=== PATIENT | female | born 2000 | race Caucasian/White ===

== ENCOUNTER 2019-06-11 20:20 | Emergency (ER) | payer OTHER, BC ==
[~2019-06-11] VITALS: Ht 160 cm; Wt 61.2 kg
[2019-06-11 20:38] LABS: BILIRUBIN,URINE NEGATIVE (NEGATIVE); CLARITY,URINE CLEAR; COLOR,URINE YELLOW; GLUCOSE, URINE (UA) NEGATIVE (NEGATIVE); KETONES,URINE NEGATIVE (NEGATIVE); LEUKOCYTE ESTERASE ,URINE 2+ (NEGATIVE); NITRITE,URINE NEGATIVE (NEGATIVE); PROTEIN,URINE NEGATIVE (NEGATIVE)
--- NOTE | 2019-06-11 20:45 | NUR ---
Assisted provider with bedside ultrasound. Baby A FHT 135 Baby B FHT 150 + movement to both babies.
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
[2019-06-11 21:13] LABS: BACTERIA,URINE FEW /HPF
[2019-06-11 21:27] VITALS: BP 120/77
== END 2019-06-11 21:28 | disposition home or self-care (01) ==
LOC: ER 20:23
DX: O26.892 Other specified pregnancy related conditions, second trimester (principal); R10.9 Unspecified abdominal pain; R40.2142 Coma scale, eyes open, spontaneous, at arrival to emergency department; R40.2252 Coma scale, best verbal response, oriented, at arrival to emergency department; R40.2362 Coma scale, best motor response, obeys commands, at arrival to emergency department; Z3A.16 16 weeks gestation of pregnancy; V49.50XA Passenger injured in collision with unspecified motor vehicles in traffic accident, initial encounter
CPT/HCPCS: 81000; 87088

== ENCOUNTER 2019-10-28 05:34 | Outpatient (CLI) | payer BC, OTHER ==
[~2019-10-28] VITALS: Ht 157 cm; Wt 86.0 kg
[2019-10-28] MEDS ORDERED: FERR-84 PO (09:58)
[2019-10-28] MEDS ORDERED: FOLI0.8C PO (09:58)
[2019-10-28] MEDS ORDERED: PREN-8 PO (09:58)
[2019-10-28] MEDS ORDERED: CETI10TA21 PO (09:58)
== END 2019-10-28 10:18 | disposition home or self-care (01) ==
LOC: PREOP 05:34
PROVIDERS: ATTEND Obstetrics & Gynecology
DX: Z01.818 Encounter for other preprocedural examination (principal)

== ENCOUNTER 2019-11-04 06:36 | Inpatient (IN) | payer BC, OTHER ==
[2019-11-04] VITALS (11 sets, daily range): BP systolic 106–137; BP diastolic 76–97
[~2019-11-04] VITALS: Ht 157.5 cm; Wt 87.6 kg
[~2019-11-04 06:36] MED LIST: AMPICILLIN FOR IV USE 1,000 MG/VIAL ONE; CETI10TA21 PO; CITRIC ACID/SOB CIT (BICITRA) 30 ML UDC ONE; FAMOTIDINE 20MG/2ML IV (PEPCID) ONE; FERR-84 PO; FOLI0.8C PO; LACTATED RINGERS 1,000 ML IV ONE; METOCLOPRAMIDE INJ 10 MG/2 ML (REGLAN) ONE; PREN-8 PO; WATER (STERILE) FOR INJECTION 10 ML ONE
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
--- NOTE | 2019-11-04 06:48 | NUR ---
MUKESH ELY presented to unit via ambulatory from ED, accompanied by s/o, with c/o TWIN . MUKESH ELY weighed, gowned, voided, and to bed. EFHM and TOCO applied, VS taken. MUKESH ELY oriented to bed controls, call light, TV, heat, and A/C controls.
[2019-11-04] MEDS ORDERED: LACTATED RINGERS 1,000 ML IV PRN (06:52)
[2019-11-04] MEDS ORDERED: BUPIVACAINE 0.25% 30 ML (SENSORCAINE) VIAL ONE (06:57)
[2019-11-04] MEDS ORDERED: fentaNYL INJECTION 100 MCG/2 ML AMP ONE (06:57)
[2019-11-04] MEDS ORDERED: METOCLOPRAMIDE INJ 10 MG/2 ML (REGLAN) IV ONE (07:00)
[2019-11-04] MEDS ORDERED: ceFAZolin INJECTION 1,000 MG in WATER (STERILE) FOR INJECTION 10 ML IV ONE (07:00)
[2019-11-04] MEDS ORDERED: FAMOTIDINE 20MG/2ML IV (PEPCID) IV ONE (07:00)
[2019-11-04] MEDS ORDERED: CITRIC ACID/SOB CIT (BICITRA) 30 ML UDC PO ONE (07:00)
[2019-11-04] MEDS ORDERED: CATHETER FLUSH 10 ML SYR IV PRN (07:00)
[2019-11-04] MEDS: LACTATED RINGERS 1,000 ML IV PRN ×2 (07:10→07:51)
[2019-11-04] MEDS ORDERED: AMPICILLIN FOR IV USE 2,000 MG VIAL ONE (07:12)
[2019-11-04] MEDS ORDERED: ceFAZolin INJECTION 0 MG ONE (07:12)
[2019-11-04] MEDS ORDERED: WATER (STERILE) FOR INJECTION 10 ML ONE (07:14)
[2019-11-04 07:17] LABS: EOSINOPHILS % (AUTO) 1 % (0-10); HEMATOCRIT 42 % (35-52); HEMOGLOBIN 14.3 G/DL (11.5-16.0); LYMPHOCYTES % (AUTO) 21 % (12-44); MEAN CORPUSCULAR HEMOGLOBIN 29 PG (25-34); MEAN CORPUSCULAR HGB CONC 34 G/DL (32-36); MEAN CORPUSCULAR VOLUME 86 FL (80-99); MEAN PLATELET VOLUME 10.4 FL (7.4-10.4); MONOCYTES % (AUTO) 8 % (0-12); NEUTROPHILS % (AUTO) 70 % (42-75); PLATELET COUNT 307 10^3/uL (130-400); RED CELL DISTRIBUTION WIDTH 13.6 % (10.0-14.5); WHITE BLOOD COUNT 12.8 10^3/uL (4.3-11.0)
[2019-11-04 07:18] LABS: BASOPHILS % (AUTO) 0 % (0-10); EOSINOPHILS # (AUTO) 0.1 10^3/uL (0.0-0.3); LYMPHOCYTES # (AUTO) 2.7 X 10^3 (1.0-4.0); NEUTROPHILS # (AUTO) 8.9 X 10^3 (1.8-7.8)
--- NOTE | 2019-11-04 07:19 | History & Physical-OB ---
OB - Chief Complaint & HPI Date/Time Date of Admission: Date of Admission: Nov 04, 2019 at 06:36 Date seen by a Provider: Nov 06, 2019 Time Seen by a Provider: 07:00 Chief Complaint/History OB-Reason for Admission/Chief: Section Hx : 1 Hx Para: 0 Expected Date of Delivery: November 23, 2019 Gestational Age in Weeks: 37 Gestational Age in Days: 2 Indication for : malpresentation Admission Nurse Assessment Rev: Yes Allergies and Home Medications Allergies Coded Allergies: No Known Drug Allergies (Unverified , 10/28/19) Home Medications Cetirizine HCl 10 Mg Tablet, 10 MG PO DAILY PRN for CONGESTION, (Reported) Ferrous Sulfate 325 Mg Tablet, 325 MG PO DAILY, (Reported) Folic Acid 0.8 Mg Capsule, 0.8 MG PO DAILY, (Reported) Vit W-Ca,Fe,FA(<1 mg) 1 Each Tablet, 1 EACH PO DAILY, (Reported) Patient Home Medication List Home Medication List Reviewed: Yes OB - History Hx of Present Care: Yes Ultrasounds: Abnormal US findings (Twin ) Obstetrical Complications: None Medical Complications: None Delivery History Adverse Rxn to Tranfusion: No (N/A) Patient Past Medical History n/a Social History/Family History HIV/AIDS: No Sexually Transmitted Disease: No 2nd Hand Smoke Exposure: No OB - Admission Exam Physical Exam HEENT: NCAT Heart: Rhythm Normal Lungs: Clear Abdomen: Gravid Extremities: Normal Reflexes: Normal Heart Rate: 130's Accelerations: Accelerations Present Decelerations: No Decelerations Short Term Variability: Present Chcf Variability: Average (6-25) Contractions on Admission: 6-10 Minutes Apart Labs Laboratory Tests Test 11/04/19 07:00 Range/Units OB - Assessment/Plan/Diagnosis Assessment Assessment: section Admission Dx 19 yo @ 37.2 weeks MonoDi Twins with question of chorionicity Malpresentation Breech/Vtx Admission Status: Inpatient Order (span 2 midnights) Reason for Inpatient Admission: Primary Plan Plan: Section ANGELA RIVERA DO Nov 04, 2019 07:19
--- NOTE | 2019-11-04 07:27 | Discharge Inst-Women's Service ---
Discharge Inst-Women's Serv Depart Medication/Instructions New, Converted or Re-Newed RX: RX on Chart Final Diagnosis POD 2 PLTCS Problems Reviewed?: Yes Consults/Follow Up Additional Follow Up: Yes Orders/Referrals Dr. Marinelli in 7-10 days and in 6 weeks Activity Activity: Activity as Tolerated Driving Instructions: No Driving for 1 Week NO SMOKING: NO SMOKING Nothing Inside Vagina: No Douching, No [place], No Tampons Diet Discharge Diet: No Restrictions Symptoms to Report to : Bleeding Excessive, Pain Increased, Fever Over 101 Degrees F, Vaginal Bleeding Increase, Questions/Concerns For Any Problems or Questions: Contact Your Physician Skin/Wound Care Infection Signs and Symptoms: Increased Redness, Foul Odor of Wound, Increased Drainage, Skin Itchy or Has a Rash, Increased Swelling, Temperature Above 101 F Operative Area Clean and Dry: Keep Incision Clean/Dry Stitches/[place]/Dermabond: Dermabond, Care of Stitches Bathing Instructions: ANGELA Ren DO Nov 04, 2019 07:27
[2019-11-04] MEDS ORDERED: ceFAZolin 2 GM IV Premixed 50 ML ONE (07:29)
[2019-11-04] MEDS ORDERED: MEASLES,MUMPS,RUBELLA 1 EA INJ SC SCH (07:30)
[2019-11-04] MEDS ORDERED: DCS100C PO (07:30)
[2019-11-04] MEDS ORDERED: ONDANSETRON 4 MG/2 ML (SDV) Z0FRAN IVP PRN (07:30)
[2019-11-04] MEDS ORDERED: HYDR-83 PO (07:30)
[2019-11-04] MEDS ORDERED: TETANUS,DIPTH,PERTUSS P/F (BOOSTRIX) 0.5 ML VIAL IM SCH (07:30)
[2019-11-04] MEDS ORDERED: IBUP-844 PO (07:30)
[2019-11-04] MEDS: OXYTOCIN PRE-MIX DRIP 500 ML IV SCH ×3 (08:05→09:15)
[2019-11-04] MEDS ORDERED: METHYLERGONOVINE 0.2 MG/ML (METHERGINE) AMP ONE (08:06)
[2019-11-04] MEDS ORDERED: OXYTOCIN PRE-MIX DRIP 1,000 ML IV ONE (08:34)
--- NOTE | 2019-11-04 09:13 | OPERATIVE REPORT ---
DATE OF SERVICE: PREOPERATIVE DIAGNOSES: 1. A 19-year-old G1, P0 at 37 weeks and 2 days gestation. 2. Twin . 3. Malpresentation. POSTOPERATIVE DIAGNOSES: 1. A 19-year-old G1, P0 at 37 weeks and 2 days gestation. 2. Twin . 3. Malpresentation. PROCEDURE: Primary low transverse section. SURGEON: Ceferino Marinelli DO ALCOHOLIC COUNSELOR: Aurora Russo DNP, who was necessary for retraction and manipulation throughout the procedure. ANESTHESIA: Spinal. ESTIMATED BLOOD LOSS: 600 mL. URINE OUTPUT: 75 mL clear at the end of the procedure. FLUIDS: 2100 mL lactated Ringer's solution. FINDINGS: Two live male infants. A, weight 5 pound 7 ounces, Apgars of 8 and 8. B, weight 5 pounds 7 ounces, Apgars of 9 and 9. Grossly normal appearing uterus, bilateral fallopian tubes and ovaries. SPECIMEN SENT: Placenta. INDICATIONS FOR PROCEDURE: This 19-year-old female is a patient who had sought care in my office. Her was complicated by twin . There was a question of chorionicity throughout the . Early ultrasound was level I, ultrasound that appeared to be di-di chorionicity however follow up higher risk had questionable mono-di features. Therefore, the was monitored as a mono-di . She had maternal medicine monitoring throughout the ; however, they recommended delivery at 37 weeks. I discussed with the patient delivery due to malpresentation, the leading twin was breech. Risks of procedure were discussed with the patient in detail including risk of bleeding, infection, damage to surrounding structures including, but not limited to bowel, bladder, ureter, kidneys, possible need for reoperation, postoperative complications as well as recovery timeframe, possible need for blood transfusion, risk from anesthesia and even . After everything was discussed with the patient in detail, consent was obtained in the preoperative area and the patient was taken to the operating room. OPERATIVE REPORT IN DETAIL: Once in the operating room, spinal anesthesia was found to be adequate. She was placed in supine position with leftward tilt, prepped and draped in normal sterile fashion. A timeout was performed and anesthesia was tested. A Pfannenstiel skin incision was then made with a knife and carried down to underlying fascia using Bovie cautery. Fascial incision extended laterally using Bovie cautery. The superior aspect of fascial incision was then grasped with Erica clamps, tented up and dissected off the underlying rectus muscles. The inferior aspect of the fascial incision was then grasped with Erica clamps, tented up and dissected off the underlying rectus muscles. Rectus muscle was dissected down the midline using Arcos scissors, which exposed the peritoneum, which I entered bluntly and extended using blunt traction. Carl ring retractor was placed within the peritoneal incision, which offers excellent lateral sidewall retraction. I identified the lower uterine segment, which was found to be thinned out and make a low transverse incision to the vesicouterine peritoneum and bluntly dissected off a bladder flap. I then proceeded with my myotomy until membranes were visualized at which point I extended the uterine incision laterally and superiorly using bandage scissors. Amniotomy is performed in the process of doing so. The leading infant is in the breech presentation. The buttocks were elevated up to the incision. With gentle fundal pressure, the buttocks were delivered through the incision and the was delivered up to the upper torso where the arms were delivered by sweeping them across the chest and gentle extension and flexion of the head allowed delivery of the head through the incision. The nares and oropharynx were bulb suctioned. The cord doubly clamped and cut and infant was handed off to the waiting nurses in attendance. A second amniotomy was performed in second sac and this was now noted to be in the breech presentation as well. In similar fashion, the buttocks were delivered and the infant was delivered up to the level of the upper torso where the arms were delivered by sweeping them across the chest and then with gentle extension and flexion of the neck, the infant's head was delivered through the incision where the nares and oropharynx were then bulb suctioned. Infant is then cord has been clamped and cut and was handed off to waiting nurses in attendance. Cord blood was collected from this cord as well. Placenta was then delivered and sent for pathology evaluation. The uterus was exteriorized and cleared off endometrial clots and debris. I then proceeded with closing the uterine incision using 0 Vicryl suture in running locked fashion. Second layer of imbricating 0 Monocryl was placed. Excellent hemostasis was noted after doing so, however, there is some slight uterine bogginess likely due to uterine distention from twin . I have 0.2mg of Methergine administered IM at that point. The uterus was then placed back within the pelvis and the pelvis was copiously irrigated using normal saline. Once again, there was no active bleeding noted from any of my dissection planes. I placed Interceed antiadhesive over my low transverse incision and then removed the Carl ring retractor. After doing so, I reapproximated the peritoneum using 3-0 Vicryl suture in running fashion. The rectus muscle reapproximated using 3-0 Vicryl suture in interrupted fashion. The fascia was reapproximated using 0 Vicryl suture in running fashion. Subcutaneous tissue was reapproximated using 3-0 plain interrupted subcutaneous stitch and skin reapproximated using 4-0 Monocryl running subcuticular. Dermabond was applied to incision and sterile dressing with adhesive white tape. The patient tolerated the procedure well and sent to recovery area in stable condition. Lap and sponge counts were correct at the end of the procedure. Instrument counts correct as well. Nance catheter was left in place. Two grams of Ancef given preoperatively for infection prophylaxis. Job ID: [id number] DocumentID: [id number] Dictated Date: 11/04/2019 08:44:30 Keel Press Operator Date: 11/04/2019 09:12:46 Dictated By: DO MAMADOU HERNANDEZ
[2019-11-04] MEDS: KETOROLAC 30 MG/ML VIAL IV SCH ×3 (09:25→23:41)
[2019-11-04] MEDS: HYDROcodone/APAP 5 MG/325 MG (LORTAB) TAB PO PRN ×2 (11:48→19:04)
--- NOTE | 2019-11-04 12:30 | NUR ---
Nance DC'd. Fundus firm U/2 with moderate rubra lochia noted. Pericare completed and clean pad and panties applied.
[2019-11-04] MEDS ORDERED: HYDROmorphone 2 MG/ML VIAL (DILAUDID) IV PRN (12:45)
[2019-11-04] MEDS ORDERED: HYDROmorphone 2 MG/ML VIAL (DILAUDID) ONE (12:47)
[2019-11-04] MEDS: CATHETER FLUSH 10 ML SYR IV SCH ×2 (14:00→23:41)
[2019-11-04] MEDS ORDERED: CATHETER FLUSH 10 ML SYR IV SCH (14:00)
--- NOTE | 2019-11-04 15:50 | NUR ---
Patient assisted up to restroom. +void noted. Pericare completed and clean pad applied. Patient ambulated back to bed without difficulty.
[2019-11-04] MEDS: DOCUSATE SODIUM 100 MG (COLACE) CAP PO SCH ×2 (17:56→20:26)
--- NOTE | 2019-11-04 19:04 | NUR ---
Lortab 2 PO given for patient's c/o pain.
--- NOTE | 2019-11-04 19:15 | NUR ---
Report to Yayo Tracy RN.
[2019-11-05 03:15] VITALS: BP 106/71
[2019-11-05] MEDS: HYDROcodone/APAP 5 MG/325 MG (LORTAB) TAB PO PRN ×3 (03:15→17:34)
[2019-11-05 05:29] LABS: BASOPHILS % (AUTO) 0 % (0-10); EOSINOPHILS # (AUTO) 0.1 10^3/uL (0.0-0.3); EOSINOPHILS % (AUTO) 1 % (0-10); HEMATOCRIT 29 % (35-52); HEMOGLOBIN 9.6 G/DL (11.5-16.0); LYMPHOCYTES # (AUTO) 2.6 X 10^3 (1.0-4.0); LYMPHOCYTES % (AUTO) 20 % (12-44); MEAN CORPUSCULAR HEMOGLOBIN 29 PG (25-34); MEAN CORPUSCULAR HGB CONC 33 G/DL (32-36); MEAN CORPUSCULAR VOLUME 89 FL (80-99); MEAN PLATELET VOLUME 10.3 FL (7.4-10.4); MONOCYTES # (AUTO) 1.1 X 10^3 (0.0-1.0); MONOCYTES % (AUTO) 9 % (0-12); NEUTROPHILS # (AUTO) 9.1 X 10^3 (1.8-7.8); NEUTROPHILS % (AUTO) 70 % (42-75); PLATELET COUNT 265 10^3/uL (130-400); RED CELL DISTRIBUTION WIDTH 13.6 % (10.0-14.5)
[2019-11-05] MEDS: KETOROLAC 30 MG/ML VIAL IV SCH (06:26)
[2019-11-05] MEDS: CATHETER FLUSH 10 ML SYR IV SCH ×2 (06:26→17:34)
[2019-11-05 09:02] VITALS: BP 118/62
[2019-11-05] MEDS: DOCUSATE SODIUM 100 MG (COLACE) CAP PO SCH ×2 (09:02→21:58)
--- NOTE | 2019-11-05 09:19 | Postpartum Progress Note ---
Note Note Day # 1 Subjective: Patient is without complaints. Ambulating, voiding. Tolerating a regular diet without nausea or vomiting. Normal lochia. Pain is well controlled with oral pain medications. Objective: Physical Exam: General - Alert and oriented, no apparent distress Abdomen - Soft, appropriately tender to palpation, non-distended, fundus firm at umbilicus Extremities - no edema, negative Wesley's bilaterally Incision- c/d/i Assessment: POD 1 PLTCS Acute blood loss anemia Plan: Routine care. Encourage breast feeding. Encourage ambulation. Ferrous sulfate supplementation. Plan for discharge tomorrow Vitals - Labs Vital Signs - I&O Vital Signs Date Time Temp Pulse Resp B/P (MAP) Pulse Ox O2 Delivery O2 Flow Rate FiO2 11/05/19 09:02 36.4 98 18 118/62 (80) 97 Room Air 11/05/19 03:15 36.6 93 18 106/71 (83) 99 Room Air 11/04/19 23:41 36.4 76 18 122/76 (91) 99 Room Air 11/04/19 20:26 36.8 103 16 129/81 (97) 99 Room Air 11/04/19 16:11 36.6 99 16 137/81 (99) 98 Room Air 11/04/19 11:48 36.8 95 18 126/79 (95) 99 Room Air 11/04/19 09:45 Room Air 11/04/19 09:45 36.6 16 122/87 (99) Room Air 11/04/19 09:30 36.6 16 127/79 (95) Room Air 11/04/19 09:30 Room Air I & O 11/05/19 07:00 Intake Total 5864.8 ml Output Total 3675 ml Balance 2189.8 ml Labs Laboratory Tests 11/05/19 05:18: White Blood Count 13.0H, Red Blood Count 3.30L, Hemoglobin 9.6#L, Hematocrit 29L , Mean Corpuscular Volume 89, Mean Corpuscular Hemoglobin 29, Mean Corpuscular Hemoglobin Concent 33, Red Cell Distribution Width 13.6, Platelet Count 265, Mean Platelet Volume 10.3, Neutrophils (%) (Auto) 70, Lymphocytes (%) (Auto) 20, Monocytes (%) (Auto) 9, Eosinophils (%) (Auto) 1, Basophils (%) (Auto) 0, Neutrophils # (Auto) 9.1H, Lymphocytes # (Auto) 2.6, Monocytes # (Auto) 1.1H, Eosinophils # (Auto) 0.1, Basophils # (Auto) 0.0 ANGELA RIVERA DO Nov 05, 2019 9:19 am
--- NOTE | 2019-11-05 10:30 | Anesthesia-Regional Post-Op ---
Regional Patient Condition Mental Status: Alert, Oriented x3 Circulation: Same as Pre-Op Headache: Absent Sensation: Full Recovery Motor Block: Absent Post Op Complications Complications None Follow Up Care/Instructions Patient Instructions None needed. Anesthesia/Patient Condition Patient is doing well, no complaints, stable vital signs, no apparent adverse anesthesia problems. No complications reported per nursing. AIMEE KRAUSE CRNA Nov 05, 2019 10:30
--- NOTE | 2019-11-05 10:58 | NUR ---
Dr Marinelli called to notfiy of pt c/o shortness of breath when up moving in the room." New order received. plan of care reviewed with pt.
[2019-11-05] MEDS: FERROUS SULF 325 MG (IRON) TAB PO SCH (11:08)
[2019-11-05] MEDS: IBUPROFEN 600 MG (MOTRIN) TAB PO SCH ×2 (11:41→17:20)
[2019-11-05 13:12] VITALS: BP 116/67
[2019-11-05 17:22] VITALS: BP 123/63
[2019-11-06 01:13] VITALS: BP 120/66
[2019-11-06] MEDS: IBUPROFEN 600 MG (MOTRIN) TAB PO SCH ×3 (01:13→12:41)
[2019-11-06] MEDS: HYDROcodone/APAP 5 MG/325 MG (LORTAB) TAB PO PRN (01:13)
[2019-11-06 06:31] VITALS: BP 116/67
[2019-11-06] MEDS: DOCUSATE SODIUM 100 MG (COLACE) CAP PO SCH (08:09)
[2019-11-06] MEDS: FERROUS SULF 325 MG (IRON) TAB PO SCH (08:09)
--- NOTE | 2019-11-06 09:25 | Postpartum Progress Note ---
Note Note Day # 2 Subjective: Patient is without complaints. Ambulating, voiding. Tolerating a regular diet without nausea or vomiting. Normal lochia. Pain is well controlled with oral pain medications. Objective: Physical Exam: General - Alert and oriented, no apparent distress Abdomen - Soft, appropriately tender to palpation, non-distended, fundus firm at umbilicus Extremities - no edema, negative Wesley's bilaterally Incision- c/d/i Assessment: [POD 2 PLTCS Plan: Routine care. Encourage breast feeding. Encourage ambulation. Ferrous sulfate supplementation. Plan for discharge today Vitals - Labs Vital Signs - I&O Vital Signs Date Time Temp Pulse Resp B/P (MAP) Pulse Ox O2 Delivery O2 Flow Rate FiO2 11/06/19 06:31 36.4 86 18 116/67 (83) 98 Room Air 11/06/19 01:13 36.6 104 18 120/66 (84) 98 Room Air 11/05/19 17:22 36.8 97 18 123/63 (83) 98 Room Air 11/05/19 13:12 36.9 100 18 116/67 (83) 97 Room Air I & O 11/06/19 07:00 Intake Total 1800 ml Output Total 2700 ml Balance -900 ml ANGELA RIVERA DO Nov 06, 2019 9:25 am
[2019-11-06 12:00] VITALS: BP 116/68
--- NOTE | 2019-11-06 14:50 | NUR ---
Report received from [facility]. care assumed of pt.
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
== END 2019-11-06 17:55 | disposition home or self-care (01) | DRG 787 ==
LOC: LDRP 06:36 → WS 10:00
PROVIDERS: ADMIT Obstetrics & Gynecology; ATTEND Obstetrics & Gynecology
PROC: 10D00Z1 Extraction of Products of Conception, Low, Open Approach (ICD-10-PCS; principal; 2019-11-04 07:38)
DX: O30.033 Twin pregnancy, monochorionic/diamniotic, third trimester (principal); O64.1XX1 Obstructed labor due to breech presentation, fetus 1; O64.1XX2 Obstructed labor due to breech presentation, fetus 2; O62.2 Other uterine inertia; O90.81 Anemia of the puerperium; D62 Acute posthemorrhagic anemia; Z37.2 Twins, both liveborn; Z3A.37 37 weeks gestation of pregnancy; Z23 Encounter for immunization
CPT/HCPCS: 36415; 85025; 86850; 86900; 86901; 90715; 94664

== ENCOUNTER 2019-11-20 20:54 | Emergency (ER) | payer BC ==
[~2019-11-20] VITALS: Ht 157.5 cm; Wt 78.3 kg
[~2019-11-20 20:54] MED LIST changes: -AMPICILLIN FOR IV USE 1,000 MG/VIAL ONE; -CITRIC ACID/SOB CIT (BICITRA) 30 ML UDC ONE; +DCS100C PO; -FAMOTIDINE 20MG/2ML IV (PEPCID) ONE; +HYDR-83 PO; +IBUP-844 PO; -LACTATED RINGERS 1,000 ML IV ONE; -METOCLOPRAMIDE INJ 10 MG/2 ML (REGLAN) ONE; -WATER (STERILE) FOR INJECTION 10 ML ONE
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
--- NOTE | 2019-11-20 21:12 | ED Abdominal Pain ---
General Chief Complaint: Abdominal/GI Problems Stated Complaint: RIB PAIN, DIFFICULTY BREATHING,DIZZINESS Source of Information: Patient Exam Limitations: No Limitations History of Present Illness Date Seen by Provider: Nov 20, 2019 Time Seen by Provider: 20:56 Initial Comments Patient presents to ER by private conveyance with significant other with chief complaint that an hour ago she began to experience a bout of pain in her epigastric right upper quadrant and left upper quadrant abdomen up under the ribs that made her catch her breath and feels short of breath. She said this episode happened about 2 hours after she ate dinner. It is worse when she lays down. She tried some ibuprofen 45 minutes ago and by the time she got to the ER her pain is pretty much gone. She is 2 weeks status post for twins breech presentation with no other palpitations and . She is followed by Dr. RIVERA. She also is known to Dr. Bella. She's had no abdominal surgeries or scopes otherwise besides the . She has not tried any antacids. She is breast-feeding as well as formula feeding. She's having a tiny bit of show occasionally but otherwise is pretty much stopped. She is having no dysuria or discharge. She's had no fevers chills cough. No sick contacts. She takes vitamins and no other medications. She stopped using the hydrocodone about for 5 days ago for pain and switched ibuprofen as necessary. She is been having normal formed bowel movements daily since then. Allergies and Home Medications Allergies Coded Allergies: No Known Drug Allergies (Unverified , 10/28/19) Home Medications Hydrocodone/Acetaminophen 1 Each Tablet, 2 TAB PO Q6HR PRN for PAIN-MODERATE (5- 7) Prescribed by: ANGELA RIVERA on 11/04/19 0730 Ibuprofen 600 Mg Tablet, 600 MG PO Q6HR Prescribed by: ANGELA RIVERA on 11/04/19 0730 Vit W-Ca,Fe,FA(<1 mg) 1 Each Tablet, 1 EACH PO DAILY, (Reported) Patient Home Medication List Home Medication List Reviewed: Yes Review of Systems Review of Systems Constitutional: No chills, No diaphoresis EENTM: No Blurred Vision, No Double Vision Respiratory: Denies Cough; Shortness of Air (with the pain but not resume.); Denies Wheezing Cardiovascular: Denies Chest Pain Gastrointestinal: See HPI, Abdominal Pain; Denies Constipated, Denies Diarrhea, Denies Nausea, Denies Vomiting Genitourinary: Denies Burning, Denies Discharge Musculoskeletal: No back pain, No joint pain Skin: No pruritus, No rash Psychiatric/Neurological: Denies Headache, Denies Numbness All Other Systems Reviewed Negative Unless Noted: Yes Past Merkyua-Ssfiwg-Ildszj Hx Patient Social History Alcohol Use: Denies Use Recreational Drug Use: No Smoking Status: Never a Smoker 2nd Hand Smoke Exposure: No Recent Foreign Travel: No Contact w/Someone Who Travel: No Recent Hopitalizations: No Seasonal Allergies Seasonal Allergies: Yes Past Medical History Surgeries: No Respiratory: No Cardiac: No Neurological: No Female Reproductive Disorders: Denies Sexually Transmitted Disease: No HIV/AIDS: No Genitourinary: No Gastrointestinal: No Musculoskeletal: No Endocrine: No HEENT: No Loss of Vision: Denies Hearing Impairment: Denies Cancer: No Psychosocial: No Integumentary: Yes (MILD) Eczema Blood Disorders: No Adverse Reaction/Blood Tranf: No (N/A) Family Medical History Diabetes mellitus Grandparents (Paternal Grandmother) FH: cancer Grandparents (Maternal Grandmother) Hypertension Grandparents (Maternal Grandmother) Physical Exam Vital Signs Vital Signs - First Documented 11/20/19 20:59 Temp 36.9 Pulse 89 Resp 18 B/P (MAP) 124/104 (111) Pulse Ox 99 O2 Delivery Room Air Capillary Refill : Height/Weight/BMI Height: '" Weight: lbs. oz. kg; 35.31 BMI Method: General Appearance: WD/WN, no apparent distress HEENT: PERRL/EOMI, pharynx normal Neck: full range of motion, normal inspection Respiratory: no respiratory distress, no accessory muscle use Cardiovascular: normal peripheral pulses, regular rate, rhythm Peripheral Pulses: 2+ Radial Pulses (R), 2+ Radial Pulses (L) Gastrointestinal: normal bowel sounds, soft, no organomegaly, tenderness (mild tenderness with deep inspiration of the right upper quadrant), other (negative for psoas sign, Rovsing sign, McBurney's point tenderness.) Extremities: normal range of motion, normal capillary refill Neurologic/Psychiatric: alert, normal mood/affect, oriented x 3 Skin: normal color, warm/dry, other (healing low section scar without evidence of discharge, dehiscence or seroma.) Progress/Results/Core Measures Results/Orders Lab Results Laboratory Tests Test 11/20/19 21:09 11/20/19 21:15 Range/Units Urine Color YELLOW Urine Clarity CLEAR Urine pH 6.5 5-9 Urine Specific Mclaughlin 1.010 L 1.016-1.022 Urine Protein NEGATIVE NEGATIVE Urine Glucose (UA) NEGATIVE NEGATIVE Urine Ketones NEGATIVE NEGATIVE Urine Nitrite NEGATIVE NEGATIVE Urine Bilirubin NEGATIVE NEGATIVE Urine Urobilinogen 0.2 < = 1.0 MG/DL Urine Leukocyte Esterase NEGATIVE NEGATIVE Urine RBC (Auto) NEGATIVE NEGATIVE Urine RBC NONE /HPF Urine WBC NONE /HPF Urine Squamous Epithelial Cells 0-2 /HPF Urine Crystals NONE /LPF Urine Bacteria NEGATIVE /HPF Urine Casts NONE /LPF Urine Mucus NEGATIVE /LPF Urine Culture Indicated NO White Blood Count 12.5 H 4.3-11.0 10^3/uL Red Blood Count 4.46 4.35-5.85 10^6/uL Hemoglobin 12.7 11.5-16.0 G/DL Hematocrit 39 35-52 % Mean Corpuscular Volume 88 80-99 FL Mean Corpuscular Hemoglobin 29 25-34 PG Mean Corpuscular Hemoglobin Concent 33 32-36 G/DL Red Cell Distribution Width 12.8 10.0-14.5 % Platelet Count 554 H 130-400 10^3/uL Mean Platelet Volume 9.7 7.4-10.4 FL Neutrophils (%) (Auto) 71 42-75 % Lymphocytes (%) (Auto) 21 12-44 % Monocytes (%) (Auto) 6 0-12 % Eosinophils (%) (Auto) 2 0-10 % Basophils (%) (Auto) 0 0-10 % Neutrophils # (Auto) 8.8 H 1.8-7.8 X 10^3 Lymphocytes # (Auto) 2.6 1.0-4.0 X 10^3 Monocytes # (Auto) 0.8 0.0-1.0 X 10^3 Eosinophils # (Auto) 0.2 0.0-0.3 10^3/uL Basophils # (Auto) 0.1 0.0-0.1 10^3/uL Sodium Level 141 135-145 MMOL/L Potassium Level 3.9 3.6-5.0 MMOL/L Chloride Level 105 98-107 MMOL/L Carbon Dioxide Level 21 21-32 MMOL/L Anion Gap 15 H 5-14 MMOL/L Blood Urea Nitrogen 13 7-18 MG/DL Creatinine 1.01 0.60-1.30 MG/DL Estimat Glomerular Filtration Rate > 60 BUN/Creatinine Ratio 13 Glucose Level 90 70-105 MG/DL Calcium Level 8.7 8.5-10.1 MG/DL Corrected Calcium 8.5 8.5-10.1 MG/DL Total Bilirubin 0.4 0.1-1.0 MG/DL Aspartate Amino Transf (AST/SGOT) 44 H 5-34 U/L Alanine Aminotransferase (ALT/SGPT) 31 0-55 U/L Alkaline Phosphatase 124 40-136 U/L Total Protein 7.3 6.4-8.2 GM/DL Albumin 4.2 3.2-4.5 GM/DL Lipase 32 8-78 U/L My Orders Orders - ESPERANZA SANDOVAL Famotidine Injection (Pepcid Injection) (11/20/19 21:15) Cbc With Automated Diff (11/20/19 21:09) Comprehensive Metabolic Panel (11/20/19 21:09) Lipase (11/20/19 21:09) Ua Culture If Indicated (11/20/19 21:12) Medications Given in ED Current Medications Medications Dose Ordered Sig/Mirta Route Start Time Stop Time Status Last Admin Dose Admin Famotidine 20 mg ONCE ONCE IVP 11/20/19 21:15 11/20/19 21:16 DC 11/20/19 21:20 20 MG Vital Signs/I&O 11/20/19 20:59 Temp 36.9 Pulse 89 Resp 18 B/P (MAP) 124/104 (111) Pulse Ox 99 O2 Delivery Room Air Progress Progress Note : Time: 21:15 Progress Note Nonacute abdomen with aseptic vital signs. She could be experiencing biliary colic, GERD, bowel gas. We have offered to give her some Pepcid check some basic labs and if everything is okay she can do a outpatient ultrasound of her right upper quadrant and use antiacids. We've also suggested simethicone. She has no respiratory distress at this time the pain went away with ibuprofen which seemed to be driving her shortness of air. Her dizziness seemed to follow when she got short of air and there may be a component of anxiety. She does not exhibit a depressed affect nor answer positive for any of the pressure and screening questions for concern of depression. She seems to be involved in caring for her children and they seemed to be doing well by her report. Departure Impression Primary Impression: Right upper quadrant abdominal pain Disposition: 01 HOME, SELF-CARE Condition: Stable Departure-Patient Inst. Decision time for Depature: 21:59 Referrals: CECILIA ABDUL JACQUELINE S DO (PCP/Family) Primary Care Physician Patient Instructions: Acid Reflux and GERD in Adults (DC), Gas and Bloating, Stomach Ache and Stomach Upset Add. Discharge Instructions: While we don't find anything dangerous tonight about your abdominal discomfort I would suggest some further outpatient workup either by her primary care doctor or if you wish you can follow-up with the general surgeon to have elected to gallbladder just call Dr. Abdul at his clinic and make an appointment if you prefer to go that route. We've provided you with an outpatient order form to that you can call tomorrow during business hours and get set up for an ultrasound to review your gallbladder. If your pain comes back you can try an antacid such as Rolaids, Tums, Maalox, Pepto-Bismol etc. You may also try Gas-X/simethicone. Tylenol 1000 mg every 8 hours as needed for pain can also be useful. If you're pain becomes intractable or is accompanied with fever or other w orrisome symptoms then I would encourage you to follow up in the ER. For the next 2 weeks I suggest using an zesw-eyk-dyiafiw acid cellophane casting machine repairer such as Pepcid/famotidine 20 mg twice a day or Zantac/ranitidine 150 mg twice a day. All discharge instructions reviewed with patient and/or family. Voiced understanding. Copy Copies To 1: CECILIA ABDUL TITUS J Nov 20, 2019 21:12
[2019-11-20] MEDS ORDERED: FAMOTIDINE 20MG/2ML IV (PEPCID) IVP ONE (21:15)
[2019-11-20 21:29] LABS: BASOPHILS # (AUTO) 0.1 10^3/uL (0.0-0.1); BASOPHILS % (AUTO) 0 % (0-10); EOSINOPHILS # (AUTO) 0.2 10^3/uL (0.0-0.3); EOSINOPHILS % (AUTO) 2 % (0-10); HEMATOCRIT 39 % (35-52); HEMOGLOBIN 12.7 G/DL (11.5-16.0); LYMPHOCYTES # (AUTO) 2.6 X 10^3 (1.0-4.0); LYMPHOCYTES % (AUTO) 21 % (12-44); MEAN CORPUSCULAR HEMOGLOBIN 29 PG (25-34); MEAN CORPUSCULAR HGB CONC 33 G/DL (32-36); MEAN CORPUSCULAR VOLUME 88 FL (80-99); MEAN PLATELET VOLUME 9.7 FL (7.4-10.4); MONOCYTES # (AUTO) 0.8 X 10^3 (0.0-1.0); MONOCYTES % (AUTO) 6 % (0-12); NEUTROPHILS # (AUTO) 8.8 X 10^3 (1.8-7.8); NEUTROPHILS % (AUTO) 71 % (42-75); PLATELET COUNT 554 10^3/uL (130-400); RED CELL DISTRIBUTION WIDTH 12.8 % (10.0-14.5); WHITE BLOOD COUNT 12.5 10^3/uL (4.3-11.0)
[2019-11-20 21:44] LABS: BACTERIA,URINE NEGATIVE /HPF; BILIRUBIN,URINE NEGATIVE (NEGATIVE); CLARITY,URINE CLEAR; COLOR,URINE YELLOW; GLUCOSE, URINE (UA) NEGATIVE (NEGATIVE); KETONES,URINE NEGATIVE (NEGATIVE); LEUKOCYTE ESTERASE ,URINE NEGATIVE (NEGATIVE); NITRITE,URINE NEGATIVE (NEGATIVE); PH,URINE 6.5 (5-9); PROTEIN,URINE NEGATIVE (NEGATIVE); SQUAMOUS EPITHELIAL CELL,UR 0-2 /HPF
[2019-11-20 21:54] LABS: ALANINE AMINOTRANSFERASE 31 U/L (0-55); ALBUMIN 4.2 GM/DL (3.2-4.5); ALKALINE PHOSPHATASE 124 U/L (40-136); BILIRUBIN,TOTAL 0.4 MG/DL (0.1-1.0); BUN/CREATININE RATIO 13; CALCIUM 8.7 MG/DL (8.5-10.1); CARBON DIOXIDE 21 MMOL/L (21-32); CHLORIDE 105 MMOL/L (98-107); CREATININE SERUM 1.01 MG/DL (0.60-1.30); GFR ESTIMATED > 60; GLUCOSE 90 MG/DL (70-105); LIPASE 32 U/L (8-78); POTASSIUM 3.9 MMOL/L (3.6-5.0); SODIUM 141 MMOL/L (135-145); TOTAL PROTEIN 7.3 GM/DL (6.4-8.2)
[2019-11-20 22:07] VITALS: BP 121/79
== END 2019-11-20 22:07 | disposition home or self-care (01) ==
LOC: EDUNIT# 20:54 → ER 20:57
DX: R10.11 Right upper quadrant pain (principal); L30.9 Dermatitis, unspecified
CPT/HCPCS: 36415; 80053; 81000; 83690; 85025

== ENCOUNTER → 2019-11-25 | Outpatient (CLI) | payer BC ==
--- NOTE | 2019-11-25 10:34 | Diagnostic Imaging Report ---
PROCEDURE: US Gallbladder. TECHNIQUE: Multiple real-time grayscale images were obtained over the right upper quadrant in various projections. INDICATION: Abdominal pain There are no prior studies available for comparison. There are a number of small gallstones and a few prominent gallstones within the gallbladder. The gallbladder wall is not thickened nor is there any pericholecystic fluid to suggest acute cholecystitis. The Common bile duct is dilated. The liver, right kidney, pancreas, aorta and inferior vena cava show no sign of an acute abnormality. IMPRESSION: 1. There is cholelithiasis but there is no evidence for acute cholecystitis. 2. If clinical concern regarding an underlying abnormality of the gallbladder persists and further imaging is desired, then nuclear medicine hepatobiliary scan would be recommended. Dictated by: Dictated on workstation # [id number]
== END ==
LOC: RAD 08:27
PROVIDERS: ATTEND Emergency Medicine
DX: K80.20 Calculus of gallbladder without cholecystitis without obstruction (principal)
CPT/HCPCS: 76705

== ENCOUNTER 2019-12-26 08:08 | Outpatient (RCR) | payer BC ==
[~2019-12-26] VITALS: Ht 157 cm; Wt 79.5 kg
== END 2019-12-26 14:08 | disposition home or self-care (01) ==
LOC: PREOP 08:08
PROVIDERS: ATTEND Surgery
DX: Z01.818 Encounter for other preprocedural examination (principal); Z11.59 Encounter for screening for other viral diseases; K80.20 Calculus of gallbladder without cholecystitis without obstruction
CPT/HCPCS: 87635

== ENCOUNTER 2019-12-31 08:19 | Day surgery (SDC) | payer BC ==
[2019-12-31] VITALS (13 sets, daily range): BP systolic 113–137; BP diastolic 67–100
[~2019-12-31] VITALS: Ht 157 cm; Wt 79.5 kg
--- OUTSIDE RECORDS SUMMARY | 2019-12-31 08:29 | XMS REPORT | CCD ---
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 Name Role Phone PP Unavailable CCM Unavailable Summary Purpose Interface Exchange Insurance Providers Payer name Policy type / Coverage type Covered constitution party ID Effective Begin Date Effective End Date Blue Cross Blue Shield Blue Cross/Blue Shield [id number] 2018 Unknown Family History Family History data not found Social History Social History Element Codes Description Effective Dates Marital status Unknown Single 09/12/2017 Employment Unknown Currently employed 09/12/[address]: 570541520 Never smoker 09/12/[address]: 512747321 Never drinks alcohol 2017 Allergies, Adverse Reactions, Alerts Substance Reaction Codes Entered Date Inactivated Date Status * NO KNOWN FOOD ALLERGIES Unknown 09/12/2017 No Inactiv e Date Active _ Unknown 09/12/2017 No Inactive Date Active * NO KNOWN DRUG ALLERGIES Unknown 09/12/2017 No Inactiv e Date Active Problems Condition Codes Effective Dates Condition Status Cholelithiasis ICD-9: 574.20 ICD-10: K80.20 12/11/2019 Active Streptococcus, group A, as the cause of diseases class ified elsewhere ICD-9: 041.01 ICD-10: B95.0 01/16/2018 Active Encounter for contraceptive management, unspecified IC D-9: V25.9 ICD-10: Z30.9 10/15/2017 Active Encounter for general adult medical examination withou t abnormal findings ICD-9: V70.9 ICD-10: Z00.00 10/15/2017 Active Acute bronchitis, unspecified ICD-9: 490 ICD-10: J20.9 10/04/2017 Active Persons encountering health services in other specifie d circumstances ICD-9: V65.8 ICD-10: Z76.89 09/12/2017 Active Medications Medication Codes Instructions Start Date Stop Date Status Fill Instructions amoxicillin 500 mg capsule RxNorm: 029395 1 Capsule(s) PO TID 01/1601/15/2018 Inactive amoxicillin 500 mg capsule RxNorm: 038238 1 Capsule(s) PO TID 01/1601/25/2018 Inactive Depo-Provera 150 mg/mL intramuscular suspension RxNorm: 1000 128 1 Milliliter(s) IM every 3 months 01/01/2018 12/10/2019 Inactive Depo-Provera 150 mg/mL intramuscular suspension RxNorm: 1000 128 1 Milliliter(s) IM every 3 months 10/15/2017 10/15/2017 Inactive Zithromax Z-Sergio 250 mg tablet RxNorm: 231700 Tablet(s) PO 10/04/2017 10/14/2017 Inactive Vitamin C 1,000 mg tablet RxNorm: 561002 1 Tablet(s) PO QD No Start Date 12/10/2019 Inactive B Complex 1 oral RxNorm: 35193 oral No Start Date 12/10/2019 Inac tive Women's Multivitamin Gummies 200 mcg chewable tablet RxNorm: 1 Tablet(s) PO QD No Start Date 12/10/2019 Inactive Medication Administered No Medication Administered data Immunizations No Immunization data Results No Results data Procedures Procedure Codes Date STREP A ASSAY W/OPTIC CPT-4: 74037 01/16/2018 THER/PROPH/DIAG INJ SC/IM CPT-4: 53691 01/08/2018 THER/PROPH/DIAG INJ SC/IM CPT-4: 93643 10/17/2017 URINE TEST CPT-4: 15530 10/17/2017 Vital Signs Date Vital 01/16/2018 Temperature: 37.0 (C) / 98.6 (F) 10/15/2017 Blood Pressure 1: 104/60 Code: 8480-6 BMI: 29.6 Code: 09328-3 Heart Rate 1: 68 bpm Height: 5'2" Respiratory Rate: 20 bpm SpO2: 96% Tempera ture: 37.0 (C) / 98.6 (F) Weight: 162 lbs 10/04/2017 Blood Pressure 1: 116/70 Code: 8480-6 BMI: 30.0 Code: 67985-4 Heart Rate 1: 78 bpm Height: 5'2" Respiratory Rate: 20 bpm SpO2: 96% Tempera ture: 36.6 (C) / 97.8 (F) Weight: 164 lbs 09/12/2017 Blood Pressure 1: 122/78 Code: 8480-6 BMI: 31.1 Code: 43935-6 Heart Rate 1: 86 bpm Height: 5'2" Respiratory Rate: 24 bpm SpO2: 99% Tempera ture: 36.2 (C) / 97.2 (F) Weight: 170 lbs Functional Status No Functional Status data Reason For Visit Reason For Visit Effective Dates Notes back pain 12/11/2019 sore throat 01/16/2018 injection(s) 01/08/2018 Qbwr-Uhvrebk-Kdlx In jection was 10/17/17 injection(s) 10/17/2017 Depo Provera well woman exam (18-39 years) 10/15/2017 wants to d iscuss options regarding control. fever 10/04/2017 ~generic 09/12/2017 Establishing Care Encounters Encounter Performer Location Codes Date () OFFICE/OUTPATIENT VISIT EST Diagnosis: Cholelithiasis[ICD10: K80.20] Pam Gogo [facility] CPT-4: 81165 12/11/2019 ([id number]) NURSE/OUTPATIENT VISIT EST Diagnosis: Streptococcus, group A, as the cause of diseases classified elsewhere[ICD10: B95.0] Ángel NEAL [employer] CPT-4: 45483 01/16/2018 ([id number]) NURSE/OUTPATIENT VISIT EST Diagnosis: Encounter for contraceptive management, unspecified[ICD10: Z30.9] Ángel Vegas [employer] CPT-4: 31437 01/08/2018 ([id number]) OFFICE/OUTPATIENT VISIT EST Diagnosis: Encounter for contraceptive management, unspecified[ICD10: Z30.9] Ángel Vegas [employer] CPT-4: 13532 10/17/2017 ([id number]) PREV VISIT EST AGE 18-39 Diagnosis: Encounter for general adult medical examination without abnormal findings[ICD10: Z00.00] Diagnosis: Encounter for contraceptive management, unspecified[ICD10: Z30.9] Pam Vegas [employer] CPT-4: 49402 10/15/2017 ([id number]) OFFICE/OUTPATIENT VISIT EST Diagnosis: Acute bronchitis, unspecified[ICD10: J20.9] Pam CASTREJON CPT-4: 74659 10/04/2017 ([id number]) OFFICE/OUTPATIENT VISIT NEW Diagnosis: Persons encountering health services in other specified circumstances[ICD10: Z76.89] Pam CASTREJON T- 4: 34962 09/12/2017 Plan of Care Planned Activity Notes Codes Status Date Visit Diagnosis Plan: Cholelithiasis Discussion: ultra sound shows stone collection to gallbladder with no acute cholecystitis at that time. referral to dr. ramirez for cholecystectomy due to patient's recurrent pain/complaints. instructed patient that she needs to consume bland food in the interim to reduce pain. rolaids or tums prn bloating/pain and call office with any new or worsening symptoms. ICD-9 : 574.20 ICD-10 : K80.20 12/11/2019 Appointment: Ángel Bellatel: [address] [place], [place] [phone] [place] CANCELED 10/07/2018 Appointment: Ángel Bella WPtel: [address] [place], [place] [phone] [place] 03/28/18 1400---see note in chart from today (km) CANCELED 03/28/2018 Appointment: Ángel Bella WPtel: [address] [place], [place] [phone] [place] THROAT SWAB 01/16/2018 Patient Education: Patient Medication Summary Completed 01/16/2018 Appointment: Ángel Bella WPtel: [address] [place], [place] [phone] [place] INJECTION 01/08/2018 Patient Education: Patient Medication Summary Completed 01/08/2018 Appointment: Ángel Bella WPtel: [address] [place], [place] [phone] [place] INJECTION 10/17/2017 Patient Education: Patient Medication Summary Completed 10/17/2017 Visit Diagnosis Plan: Encounter for gene [facility] adult medical examination without abnormal findings Discussion: follow up in one year or kayla ner if needed. no need for pap until . up to date on vaccines ICD-9 : V70.9 ICD-10 : Z00.00 10/15/2017 Visit Diagnosis Plan: Encounter for contraceptive yi kirby, unspecified Discussion: discussed different options with patient in regards to control. patient felt as if the depo shot was the best option for her at this time. discussed side effects with patient, administration of med, and precautions. patient verbalized understanding of using back up protection for first 3 months. discussed with patient that if wanting to become in the future, she will need to be off medication for 6-12 months until attempting . medication sent to pharmacy and instructed patient to bring medication to office for staff to administer along with test. ICD-9 : V25.9 ICD-10 : Z30.9 10/15/2017 Appointment: Pam Bowens [address] [place], [place] [address] [address] Annual Well Visit 10/15/2017 Patient Education: Patient Medication Summary Completed 10/15/2017 Visit Diagnosis Plan: Acute bronchitis, unspecified Di scussion: zithromax prescribed for symptom relief. instructed to use saline up nares to assist with symptom management. call or rtc with new or worsening symptoms. tylenol/ibuprofen for pain or fever. ICD-9 : 490 ICD-10 : J20.9 10/04/2017 Appointment: Pam Bowens [address] [place], [place] [address] [place] [id number] ACUTE ILLNESS 10/04/2017 Patient Education: Patient Medication Summary Completed 10/04/2017 Visit Diagnosis Plan: Persons encounteri health services in other specified circumstances Discussion: discussed need for annual we llness screen at next visit. discussed office rules and services with patient who verbalized understanding. ICD-9 : V65.8 ICD-10 : Z76.89 09/12/2017 Appointment: Pam Bowens [address] [place], [place] [address] [address] sent text message asking patient to call our office mechelle ddo 09/11/17 NEW PATIENT 09/12/2017 Patient Education: Patient Medication Summary Completed 09/12/2017 Instructions No Instructions Medical Equipment No Medical Equipment data Health Concerns Section Health Concerns data not found Goals Section Goals data not found Interventions Section Interventions data not found Health Status Evaluations/Outcomes Section Health Status Evaluations/Outcomes data not found Advance Directives No Advance Directive data
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
--- OUTSIDE RECORDS SUMMARY | 2019-12-31 08:29 | XMS REPORT | CCD ---
Author Author Moon Bowens Organization ÁNGEL GiselMarianne BELLA DO [facility] Address [address] [place] [address] Phone Unavailable Care Team Providers Care Parachute Folder Name Role Phone PP Unavailable CCM Unavailable Summary Purpose Interface Exchange Insurance Providers Payer name Policy type / Coverage type Covered libertarian ID Effective Begin Date Effective End Date Blue Cross Blue Shield Blue Cross/Blue Shield [id number] 2018 Unknown Family History Family History data not found Social History Social History Element Codes Description Effective Dates Marital status Unknown Single 09/12/2017 Employment Unknown Currently employed 09/12/[address]: 688032449 Never smoker 09/12/[address]: 661458267 Never drinks alcohol 2017 Allergies, Adverse Reactions, [...] Fill Instructions amoxicillin 500 mg capsule RxNorm: 347343 1 Capsule(s) PO TID 01/1601/15/2018 Inactive amoxicillin 500 mg capsule RxNorm: 189575 1 Capsule(s) PO TID 01/1601/25/2018 Inactive Depo-Provera 150 mg/mL intramuscular suspension RxNorm: 1000 128 1 Milliliter(s) IM every 3 months 01/01/2018 12/10/2019 Inactive Depo-Provera 150 mg/mL intramuscular suspension RxNorm: 1000 128 1 Milliliter(s) IM every 3 months 10/15/2017 10/15/2017 Inactive Zithromax Z-Sergio 250 mg tablet RxNorm: 777777 Tablet(s) PO 10/04/2017 10/14/2017 Inactive Vitamin C 1,000 mg tablet RxNorm: 120950 1 Tablet(s) PO QD No Start Date 12/10/2019 Inactive B Complex 1 oral RxNorm: 49539 oral No Start Date 12/10/2019 Inac tive Women's Multivitamin Gummies 200 mcg chewable tablet RxNorm: 1 Tablet(s) PO QD No Start Date 12/10/2019 Inactive Medication Administered No Medication Administered data Immunizations No Immunization data Results No Results data Procedures Procedure Codes Date STREP A ASSAY W/OPTIC CPT-4: 00545 01/16/2018 THER/PROPH/DIAG INJ SC/IM CPT-4: 82826 01/08/2018 THER/PROPH/DIAG INJ SC/IM CPT-4: 30120 10/17/2017 URINE TEST CPT-4: 45296 10/17/2017 Vital Signs Date Vital 01/16/2018 Temperature: 37.0 (C) / 98.6 (F) 10/15/2017 Blood Pressure 1: 104/60 Code: 8480-6 BMI: 29.6 Code: 38504-5 Heart Rate 1: 68 bpm Height: 5'2" Respiratory Rate: 20 bpm SpO2: 96% Tempera ture: 37.0 (C) / 98.6 (F) Weight: 162 lbs 10/04/2017 Blood Pressure 1: 116/70 Code: 8480-6 BMI: 30.0 Code: 69113-6 Heart Rate 1: 78 bpm Height: 5'2" Respiratory Rate: 20 bpm SpO2: 96% Tempera ture: 36.6 (C) / 97.8 (F) Weight: 164 lbs 09/12/2017 Blood Pressure 1: 122/78 Code: 8480-6 BMI: 31.1 Code: 16876-5 Heart Rate 1: 86 bpm Height: 5'2" Respiratory Rate: 24 bpm SpO2: 99% Tempera ture: 36.2 (C) / 97.2 (F) Weight: 170 lbs Functional Status No Functional Status data Reason For Visit Reason For Visit Effective Dates Notes back pain 12/11/2019 sore throat 01/16/2018 injection(s) 01/08/2018 Ksvs-Aejujpd-Cdlm In jection was 10/17/17 injection(s) 10/17/2017 Depo Provera well woman exam (18-39 years) 10/15/2017 wants to d iscuss options regarding control. fever 10/04/2017 ~generic 09/12/2017 Establishing Care Encounters Encounter Performer Location Codes Date () OFFICE/OUTPATIENT VISIT EST Diagnosis: Cholelithiasis[ICD10: K80.20] Pam Gogo [facility] CPT-4: 42090 12/11/2019 ([id number]) NURSE/OUTPATIENT VISIT EST Diagnosis: Streptococcus, group A, as the cause of diseases classified elsewhere[ICD10: B95.0] Ángel NEAL [employer] CPT-4: 61435 01/16/2018 ([id number]) NURSE/OUTPATIENT VISIT EST Diagnosis: Encounter for contraceptive management, unspecified[ICD10: Z30.9] Ángel Vegas [employer] CPT-4: 04100 01/08/2018 ([id number]) OFFICE/OUTPATIENT VISIT EST Diagnosis: Encounter for contraceptive management, unspecified[ICD10: Z30.9] Ángel Vegas [employer] CPT-4: 58490 10/17/2017 ([id number]) PREV VISIT EST AGE 18-39 Diagnosis: Encounter for general adult medical examination without abnormal findings[ICD10: Z00.00] Diagnosis: Encounter for contraceptive management, unspecified[ICD10: Z30.9] Pam Vegas [employer] CPT-4: 32699 10/15/2017 ([id number]) OFFICE/OUTPATIENT VISIT EST Diagnosis: Acute bronchitis, unspecified[ICD10: J20.9] Pam CASTREJON CPT-4: 95221 10/04/2017 ([id number]) OFFICE/OUTPATIENT VISIT NEW Diagnosis: Persons encountering health services in other specified circumstances[ICD10: Z76.89] Pam CASTREJON T- 4: 51796 09/12/2017 Plan of Care Planned Activity Notes [...] ICD-10 : K80.20 12/11/2019 Appointment: Ángel Bellatel: [address] [place], [place] [phone] [place] CANCELED 10/07/2018 Appointment: Ángel Bella WPtel: [address] [place], [place] [phone] [place] 03/28/18 1400---see note in chart from today (km) CANCELED 03/28/2018 Appointment: Ángel Bella WPtel: [address] [place], [place] [phone] US THROAT SWAB 01/16/2018 Patient Education: Patient Medication Summary Completed 01/16/2018 Appointment: Ángel Bella WPtel: [address] [place], [place] [phone] [place] INJECTION 01/08/2018 Patient Education: Patient Medication Summary Completed 01/08/2018 Appointment: Ángel Bella WPtel: [address] [place], [place] [phone] [place] INJECTION 10/17/2017 Patient Education: Patient Medication Summary Completed 10/17/2017 Visit Diagnosis Plan: Encounter for contraceptive yi [...] ICD-9 : V25.9 ICD-10 : Z30.9 10/15/2017 Visit Diagnosis Plan: Encounter for gene ral adult medical examination without abnormal findings Discussion: follow up in one year or kayla ner if needed. no need for pap until . up to date on vaccines ICD-9 : V70.9 ICD-10 : Z00.00 10/15/2017 Appointment: Pam [facility] [employer] [address] Annual Well Visit 10/15/2017 Patient Education: Patient Medication Summary Completed 10/15/2017 Visit Diagnosis Plan: Acute bronchitis, unspecified Di scussion: zithromax prescribed for symptom relief. instructed to use saline up nares to assist with symptom management. call or rtc with new or worsening symptoms. tylenol/ibuprofen for pain or fever. ICD-9 : 490 ICD-10 : J20.9 10/04/2017 Appointment: Pam Bowens [address] [place], [place] [address] [place] [id number] ACUTE ILLNESS 10/04/2017 Patient Education: Patient Medication Summary Completed 10/04/2017 Visit Diagnosis Plan: [facility]ons encounter[facility] in other specified circumstances Discussion: discussed need for annual we llness screen at next visit. discussed office rules and services with patient who verbalized understanding. ICD-9 : V65.8 ICD-10 : Z76.89 09/12/2017 Appointment: Pam Bowens [address] [place], [place] [address] [address] sent text message asking patient to [...]
--- OUTSIDE RECORDS SUMMARY | 2019-12-31 08:29 | XMS REPORT | CCD ---
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 Name Role Phone PP Unavailable CCM Unavailable Summary Purpose Interface Exchange Insurance Providers Payer name Policy type / Coverage type Covered green party ID Effective Begin Date Effective End Date Blue Cross Blue Shield Blue Cross/Blue Shield [id number] 2018 Unknown Family History Family History data not found Social History Social History Element Codes Description Effective Dates Marital status Unknown Single 09/12/2017 Employment Unknown Currently employed 09/12/[address]: 190662929 Never smoker 09/12/[address]: 147690856 Never drinks alcohol 2017 Allergies, Adverse Reactions, [...] Fill Instructions amoxicillin 500 mg capsule RxNorm: 273560 1 Capsule(s) PO TID 01/1601/15/2018 Inactive amoxicillin 500 mg capsule RxNorm: 970525 1 Capsule(s) PO TID 01/1601/25/2018 Inactive Depo-Provera 150 mg/mL intramuscular suspension RxNorm: 1000 128 1 Milliliter(s) IM every 3 months 01/01/2018 12/10/2019 Inactive Depo-Provera 150 mg/mL intramuscular suspension RxNorm: 1000 128 1 Milliliter(s) IM every 3 months 10/15/2017 10/15/2017 Inactive Zithromax Z-Sergio 250 mg tablet RxNorm: 031732 Tablet(s) PO 10/04/2017 10/14/2017 Inactive Vitamin C 1,000 mg tablet RxNorm: 751286 1 Tablet(s) PO QD No Start Date 12/10/2019 Inactive B Complex 1 oral RxNorm: 44587 oral No Start Date 12/10/2019 Inac tive Women's Multivitamin Gummies 200 mcg chewable tablet RxNorm: 1 Tablet(s) PO QD No Start Date 12/10/2019 Inactive Medication Administered No Medication Administered data Immunizations No Immunization data Results No Results data Procedures Procedure Codes Date STREP A ASSAY W/OPTIC CPT-4: 80388 01/16/2018 THER/PROPH/DIAG INJ SC/IM CPT-4: 41572 01/08/2018 THER/PROPH/DIAG INJ SC/IM CPT-4: 61664 10/17/2017 URINE TEST CPT-4: 94913 10/17/2017 Vital Signs Date Vital 01/16/2018 Temperature: 37.0 (C) / 98.6 (F) 10/15/2017 Blood Pressure 1: 104/60 Code: 8480-6 BMI: 29.6 Code: 43034-0 Heart Rate 1: 68 bpm Height: 5'2" Respiratory Rate: 20 bpm SpO2: 96% Tempera ture: 37.0 (C) / 98.6 (F) Weight: 162 lbs 10/04/2017 Blood Pressure 1: 116/70 Code: 8480-6 BMI: 30.0 Code: 57610-8 Heart Rate 1: 78 bpm Height: 5'2" Respiratory Rate: 20 bpm SpO2: 96% Tempera ture: 36.6 (C) / 97.8 (F) Weight: 164 lbs 09/12/2017 Blood Pressure 1: 122/78 Code: 8480-6 BMI: 31.1 Code: 05071-0 Heart Rate 1: 86 bpm Height: 5'2" Respiratory Rate: 24 bpm SpO2: 99% Tempera ture: 36.2 (C) / 97.2 (F) Weight: 170 lbs Functional Status No Functional Status data Reason For Visit Reason For Visit Effective Dates Notes back pain 12/11/2019 sore throat 01/16/2018 injection(s) 01/08/2018 Onhp-Nnpgwgz-Xysw In jection was 10/17/17 injection(s) 10/17/2017 Depo Provera well woman exam (18-39 years) 10/15/2017 wants to d iscuss options regarding control. fever 10/04/2017 ~generic 09/12/2017 Establishing Care Encounters Encounter Performer Location Codes Date () OFFICE/OUTPATIENT VISIT EST Diagnosis: Cholelithiasis[ICD10: K80.20] [facility] CPT-4: 28002 12/11/2019 ([id number]) NURSE/OUTPATIENT VISIT EST Diagnosis: Streptococcus, group A, as the cause of diseases classified elsewhere[ICD10: B95.0] Ángel NEAL [employer] CPT-4: 71866 01/16/2018 ([id number]) NURSE/OUTPATIENT VISIT EST Diagnosis: Encounter for contraceptive management, unspecified[ICD10: Z30.9] Ángel Vegas [employer] CPT-4: 21431 01/08/2018 ([id number]) OFFICE/OUTPATIENT VISIT EST Diagnosis: Encounter for contraceptive management, unspecified[ICD10: Z30.9] Ángel Vegas [employer] CPT-4: 63288 10/17/2017 ([id number]) PREV VISIT EST AGE 18-39 Diagnosis: Encounter for general adult medical examination without abnormal findings[ICD10: Z00.00] Diagnosis: Encounter for contraceptive management, unspecified[ICD10: Z30.9] Pam Vegas [employer] CPT-4: 71932 10/15/2017 ([id number]) OFFICE/OUTPATIENT VISIT EST Diagnosis: Acute bronchitis, unspecified[ICD10: J20.9] Pam CASTREJON CPT-4: 51197 10/04/2017 ([id number]) OFFICE/OUTPATIENT VISIT NEW Diagnosis: Persons encountering health services in other specified circumstances[ICD10: Z76.89] Pam CASTREJON T- 4: 97565 09/12/2017 Plan of Care Planned Activity Notes [...] ICD-10 : K80.20 12/11/2019 Appointment: Ángel Bellatel: [address] [place], [place] [phone] [place] CANCELED 10/07/2018 Appointment: Ángel Bella WPtel: [address] [place], [place] [phone] [place] 03/28/18 1400---see note in chart from today (km) CANCELED 03/28/2018 Appointment: Ángel Bella WPtel: [address] [place], [place] [phone] [place] THROAT SWAB 01/16/2018 Patient Education: Patient Medication Summary Completed 01/16/2018 Appointment: Ángel Bella WPtel: [address] [place], [place] [phone] [place] INJECTION 01/08/2018 Patient Education: Patient Medication Summary Completed 01/08/2018 Appointment: Ángel Bella WPtel: [address] [place], [place] [phone] [place] INJECTION 10/17/2017 Patient Education: Patient Medication Summary Completed 10/17/2017 Visit Diagnosis Plan: Encounter for gene [facility] adult medical examination without abnormal findings Discussion: [...] ICD-10 : Z30.9 10/15/2017 Appointment: Pam Bowens [address] [place], [place] [address] [address] Annual Well Visit 10/15/2017 Patient Education: Patient Medication Summary Completed 10/15/2017 Visit Diagnosis Plan: Acute bronchitis, unspecified Di scussion: zithromax prescribed for symptom relief. instructed to use saline up nares to assist with symptom management. call or rtc with new or worsening symptoms. tylenol/ibuprofen for pain or fever. ICD-9 : 490 ICD-10 : J20.9 10/04/2017 Appointment: Pam Bowens [address] [place], [place] [address]a [place] [address] ACUTE ILLNESS 10/04/2017 Patient Education: Patient Medication Summary Completed 10/04/2017 Visit Diagnosis Plan: Persons encounteri health services in other specified circumstances Discussion: discussed need for annual we llness screen at next visit. discussed office rules and services with patient who verbalized understanding. ICD-9 : V65.8 ICD-10 : Z76.89 09/12/2017 Appointment: Pam Bowens [address] [place], [place] [address] [address] sent text message asking patient to [...]
--- OUTSIDE RECORDS SUMMARY | 2019-12-31 08:29 | XMS REPORT | CCD ---
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 Operator Name Role Phone PP Unavailable CCM Unavailable Summary Purpose Interface Exchange Insurance Providers Payer name Policy type / Coverage type Covered republican ID Effective Begin Date Effective End Date Blue Cross Blue Shield Blue Cross/Blue Shield [id number] 2018 Unknown Family History Family History data not found Social History Social History Element Codes Description Effective Dates Marital status Unknown Single 09/12/2017 Employment Unknown Currently employed 09/12/[address]: 770838816 Never smoker 09/12/[address]: 697179788 Never drinks alcohol 2017 Allergies, Adverse Reactions, [...] Fill Instructions amoxicillin 500 mg capsule RxNorm: 974202 1 Capsule(s) PO TID 01/1601/15/2018 Inactive amoxicillin 500 mg capsule RxNorm: 471972 1 Capsule(s) PO TID 01/1601/25/2018 Inactive Depo-Provera 150 mg/mL intramuscular suspension RxNorm: 1000 128 1 Milliliter(s) IM every 3 months 01/01/2018 12/10/2019 Inactive Depo-Provera 150 mg/mL intramuscular suspension RxNorm: 1000 128 1 Milliliter(s) IM every 3 months 10/15/2017 10/15/2017 Inactive Zithromax Z-Sergio 250 mg tablet RxNorm: 202591 Tablet(s) PO 10/04/2017 10/14/2017 Inactive Vitamin C 1,000 mg tablet RxNorm: 758324 1 Tablet(s) PO QD No Start Date 12/10/2019 Inactive B Complex 1 oral RxNorm: 83131 oral No Start Date 12/10/2019 Inac tive Women's Multivitamin Gummies 200 mcg chewable tablet RxNorm: 1 Tablet(s) PO QD No Start Date 12/10/2019 Inactive Medication Administered No Medication Administered data Immunizations No Immunization data Results No Results data Procedures Procedure Codes Date STREP A ASSAY W/OPTIC CPT-4: 18125 01/16/2018 THER/PROPH/DIAG INJ SC/IM CPT-4: 43727 01/08/2018 THER/PROPH/DIAG INJ SC/IM CPT-4: 13263 10/17/2017 URINE TEST CPT-4: 88511 10/17/2017 Vital Signs Date Vital 01/16/2018 Temperature: 37.0 (C) / 98.6 (F) 10/15/2017 Blood Pressure 1: 104/60 Code: 8480-6 BMI: 29.6 Code: 89152-4 Heart Rate 1: 68 bpm Height: 5'2" Respiratory Rate: 20 bpm SpO2: 96% Tempera ture: 37.0 (C) / 98.6 (F) Weight: 162 lbs 10/04/2017 Blood Pressure 1: 116/70 Code: 8480-6 BMI: 30.0 Code: 83797-4 Heart Rate 1: 78 bpm Height: 5'2" Respiratory Rate: 20 bpm SpO2: 96% Tempera ture: 36.6 (C) / 97.8 (F) Weight: 164 lbs 09/12/2017 Blood Pressure 1: 122/78 Code: 8480-6 BMI: 31.1 Code: 38852-3 Heart Rate 1: 86 bpm Height: 5'2" Respiratory Rate: 24 bpm SpO2: 99% Tempera ture: 36.2 (C) / 97.2 (F) Weight: 170 lbs Functional Status No Functional Status data Reason For Visit Reason For Visit Effective Dates Notes back pain 12/11/2019 sore throat 01/16/2018 injection(s) 01/08/2018 Ovvw-Pnmxkip-Hngi In jection was 10/17/17 injection(s) 10/17/2017 Depo Provera well woman exam (18-39 years) 10/15/2017 wants to d iscuss options regarding control. fever 10/04/2017 ~generic 09/12/2017 Establishing Care Encounters Encounter Performer Location Codes Date () OFFICE/OUTPATIENT VISIT EST Diagnosis: Cholelithiasis[ICD10: K80.20] [facility] CPT-4: 71383 12/11/2019 ([id number]) NURSE/OUTPATIENT VISIT EST Diagnosis: Streptococcus, group A, as the cause of diseases classified elsewhere[ICD10: B95.0] Ángel NEAL [employer] CPT-4: 12040 01/16/2018 ([id number]) NURSE/OUTPATIENT VISIT EST Diagnosis: Encounter for contraceptive management, unspecified[ICD10: Z30.9] Ángel Vegas [employer] CPT-4: 06918 01/08/2018 ([id number]) OFFICE/OUTPATIENT VISIT EST Diagnosis: Encounter for contraceptive management, unspecified[ICD10: Z30.9] Ángel Vegas [email or web address] CPT-4: 51056 10/17/2017 ([id number]) PREV VISIT EST AGE 18-39 Diagnosis: Encounter for general adult medical examination without abnormal findings[ICD10: Z00.00] Diagnosis: Encounter for contraceptive management, unspecified[ICD10: Z30.9] Pam Vegas [employer] CPT-4: 77039 10/15/2017 ([id number]) OFFICE/OUTPATIENT VISIT EST Diagnosis: Acute bronchitis, unspecified[ICD10: J20.9] Pam CASTREJON CPT-4: 02992 10/04/2017 ([id number]) OFFICE/OUTPATIENT VISIT NEW Diagnosis: Persons encountering health services in other specified circumstances[ICD10: Z76.89] Pam CASTREJON T- 4: 05589 09/12/2017 Plan of Care Planned Activity Notes [...] ICD-10 : K80.20 12/11/2019 Appointment: Ángel Bellatel: [address] [place], [place] [phone] [place] CANCELED 10/07/2018 Appointment: Ángel Bella WPtel: [address] [place], [place] [phone] [place] 03/28/18 1400---see note in chart from today (km) CANCELED 03/28/2018 Appointment: Ángel Bella WPtel: [address] [place], [place] [phone] US THROAT SWAB 01/16/2018 Patient Education: Patient Medication Summary Completed 01/16/2018 Appointment: Ángel Bella WPtel: [address] [place], [place] [phone] [place] INJECTION 01/08/2018 Patient Education: Patient Medication Summary Completed 01/08/2018 Appointment: Ángel Bella WPtel: [address] [place], [place] [phone] [place] INJECTION 10/17/2017 Patient Education: Patient Medication Summary Completed 10/17/2017 Visit Diagnosis Plan: Encounter for gene [facility] adult medical examination without abnormal findings [...] ICD-10 : Z30.9 10/15/2017 Appointment: Pam Bowens [address] [place], [place] [address] [address] Annual Well Visit 10/15/2017 Patient Education: Patient Medication Summary Completed 10/15/2017 Visit Diagnosis Plan: Acute bronchitis, unspecified Di scussion: zithromax prescribed for symptom relief. instructed to use saline up nares to assist with symptom management. call or rtc with new or worsening symptoms. tylenol/ibuprofen for pain or fever. ICD-9 : 490 ICD-10 : J20.9 10/04/2017 Appointment: Pam Bowens [address] [place], [place] [address] [place] [id number] ACUTE ILLNESS 10/04/2017 Patient Education: Patient Medication Summary Completed 10/04/2017 Visit Diagnosis Plan: Persons encounteri health services in other specified circumstances Discussion: discussed need for annual we llness screen at next visit. discussed office rules and services with patient who verbalized understanding. ICD-9 : V65.8 ICD-10 : Z76.89 09/12/2017 Appointment: Pam Bowens [address] [place], [place] [address] [address] sent text message asking patient to [...]
--- OUTSIDE RECORDS SUMMARY | 2019-12-31 08:29 | XMS REPORT | CCD ---
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 Name Role Phone PP Unavailable CCM Unavailable Summary Purpose Interface Exchange Insurance Providers Payer name Policy type / Coverage type Covered constitution party ID Effective Begin Date Effective End Date Blue Cross Blue Shield Blue Cross/Blue Shield [id number] 2018 Unknown Family History Family History data not found Social History Social History Element Codes Description Effective Dates Marital status Unknown Single 09/12/2017 Employment Unknown Currently employed 09/12/[address]: 941413963 Never smoker 09/12/[address]: 690602208 Never drinks alcohol 2017 Allergies, Adverse Reactions, [...] Fill Instructions amoxicillin 500 mg capsule RxNorm: 708206 1 Capsule(s) PO TID 01/1601/15/2018 Inactive amoxicillin 500 mg capsule RxNorm: 723000 1 Capsule(s) PO TID 01/1601/25/2018 Inactive Depo-Provera 150 mg/mL intramuscular suspension RxNorm: 1000 128 1 Milliliter(s) IM every 3 months 01/01/2018 12/10/2019 Inactive Depo-Provera 150 mg/mL intramuscular suspension RxNorm: 1000 128 1 Milliliter(s) IM every 3 months 10/15/2017 10/15/2017 Inactive Zithromax Z-Sergio 250 mg tablet RxNorm: 119927 Tablet(s) PO 10/04/2017 10/14/2017 Inactive Vitamin C 1,000 mg tablet RxNorm: 675443 1 Tablet(s) PO QD No Start Date 12/10/2019 Inactive B Complex 1 oral RxNorm: 95311 oral No Start Date 12/10/2019 Inac tive Women's Multivitamin Gummies 200 mcg chewable tablet RxNorm: 1 Tablet(s) PO QD No Start Date 12/10/2019 Inactive Medication Administered No Medication Administered data Immunizations No Immunization data Results No Results data Procedures Procedure Codes Date STREP A ASSAY W/OPTIC CPT-4: 78970 01/16/2018 THER/PROPH/DIAG INJ SC/IM CPT-4: 14180 01/08/2018 THER/PROPH/DIAG INJ SC/IM CPT-4: 12842 10/17/2017 URINE TEST CPT-4: 07460 10/17/2017 Vital Signs Date Vital 01/16/2018 Temperature: 37.0 (C) / 98.6 (F) 10/15/2017 Blood Pressure 1: 104/60 Code: 8480-6 BMI: 29.6 Code: 55722-1 Heart Rate 1: 68 bpm Height: 5'2" Respiratory Rate: 20 bpm SpO2: 96% Tempera ture: 37.0 (C) / 98.6 (F) Weight: 162 lbs 10/04/2017 Blood Pressure 1: 116/70 Code: 8480-6 BMI: 30.0 Code: 86604-5 Heart Rate 1: 78 bpm Height: 5'2" Respiratory Rate: 20 bpm SpO2: 96% Tempera ture: 36.6 (C) / 97.8 (F) Weight: 164 lbs 09/12/2017 Blood Pressure 1: 122/78 Code: 8480-6 BMI: 31.1 Code: 96959-4 Heart Rate 1: 86 bpm Height: 5'2" Respiratory Rate: 24 bpm SpO2: 99% Tempera ture: 36.2 (C) / 97.2 (F) Weight: 170 lbs Functional Status No Functional Status data Reason For Visit Reason For Visit Effective Dates Notes back pain 12/11/2019 sore throat 01/16/2018 injection(s) 01/08/2018 Nnmb-Dvujfmh-Opxt In jection was 10/17/17 injection(s) 10/17/2017 Depo Provera well woman exam (18-39 years) 10/15/2017 wants to d iscuss options regarding control. fever 10/04/2017 ~generic 09/12/2017 Establishing Care Encounters Encounter Performer Location Codes Date () OFFICE/OUTPATIENT VISIT EST Diagnosis: Cholelithiasis[ICD10: K80.20] Pam [facility] CPT-4: 25275 12/11/2019 ([id number]) NURSE/OUTPATIENT VISIT EST Diagnosis: Streptococcus, group A, as the cause of diseases classified elsewhere[ICD10: B95.0] Ángel NEAL [employer] CPT-4: 54883 01/16/2018 ([id number]) NURSE/OUTPATIENT VISIT EST Diagnosis: Encounter for contraceptive management, unspecified[ICD10: Z30.9] Ángel Vegas [employer] CPT-4: 59194 01/08/2018 ([id number]) OFFICE/OUTPATIENT VISIT EST Diagnosis: Encounter for contraceptive management, unspecified[ICD10: Z30.9] Ángel Vegas [id number] CPT-4: 28787 10/17/2017 ([id number]) PREV VISIT EST AGE 18-39 Diagnosis: Encounter for general adult medical examination without abnormal findings[ICD10: Z00.00] Diagnosis: Encounter for contraceptive management, unspecified[ICD10: Z30.9] Pam Vegas [employer] CPT-4: 98696 10/15/2017 ([id number]) OFFICE/OUTPATIENT VISIT EST Diagnosis: Acute bronchitis, unspecified[ICD10: J20.9] Pam CASTREJON CPT-4: 63413 10/04/2017 ([id number]) OFFICE/OUTPATIENT VISIT NEW Diagnosis: Persons encountering health services in other specified circumstances[ICD10: Z76.89] Pam CASTREJON T- 4: 96274 09/12/2017 Plan of Care Planned Activity Notes [...] ICD-10 : K80.20 12/11/2019 Appointment: Ángel Bellatel: [address] [place], [place] [phone] [place] CANCELED 10/07/2018 Appointment: Ángel Bella WPtel: [address] [place], [place] [phone] [place] 03/28/18 1400---see note in chart from today (km) CANCELED 03/28/2018 Appointment: Ángel Bella WPtel: [address] [place], [place] [phone] US THROAT SWAB 01/16/2018 Patient Education: Patient Medication Summary Completed 01/16/2018 Appointment: Ángel Belal WPtel: [address] [place], [place] [phone] [place] INJECTION 01/08/2018 Patient Education: Patient Medication Summary Completed 01/08/2018 Appointment: Ángel Bella WPtel: [address] [place], [place] [phone] [place] INJECTION 10/17/2017 Patient Education: Patient Medication Summary Completed 10/17/2017 Visit Diagnosis Plan: Encounter for gene [facility] adult medical examination without abnormal findings Discussion: [...] ICD-10 : Z30.9 10/15/2017 Appointment: Pam Bowens [address] [place], [place] [address] [address] Annual Well Visit 10/15/2017 Patient Education: Patient Medication Summary Completed 10/15/2017 Visit Diagnosis Plan: Acute bronchitis, unspecified Di scussion: zithromax prescribed for symptom relief. instructed to use saline up nares to assist with symptom management. call or rtc with new or worsening symptoms. tylenol/ibuprofen for pain or fever. ICD-9 : 490 ICD-10 : J20.9 10/04/2017 Appointment: Pam Bowens [address] [place], [place] [address] [place] [id number] ACUTE ILLNESS 10/04/2017 Patient Education: Patient Medication Summary Completed 10/04/2017 Visit Diagnosis Plan: Persons encounteri health services in other specified circumstances Discussion: discussed need for annual we llness screen at next visit. discussed office rules and services with patient who verbalized understanding. ICD-9 : V65.8 ICD-10 : Z76.89 09/12/2017 Appointment: Pam Bowens [address] [place], [place] [address] [address] sent text message asking patient to [...]
[2019-12-31] MEDS: LACTATED RINGERS 1,000 ML IV PRN ×2 (08:45→10:45)
[2019-12-31 08:56] LABS: BASOPHILS % (AUTO) 0 % (0-10); EOSINOPHILS # (AUTO) 0.2 10^3/uL (0.0-0.3); EOSINOPHILS % (AUTO) 3 % (0-10); HEMATOCRIT 42 % (35-52); HEMOGLOBIN 13.9 G/DL (11.5-16.0); LYMPHOCYTES # (AUTO) 2.1 X 10^3 (1.0-4.0); LYMPHOCYTES % (AUTO) 25 % (12-44); MEAN CORPUSCULAR HEMOGLOBIN 28 PG (25-34); MEAN CORPUSCULAR HGB CONC 33 G/DL (32-36); MEAN CORPUSCULAR VOLUME 85 FL (80-99); MEAN PLATELET VOLUME 10.7 FL (7.4-10.4); MONOCYTES # (AUTO) 0.7 X 10^3 (0.0-1.0); MONOCYTES % (AUTO) 9 % (0-12); NEUTROPHILS # (AUTO) 5.5 X 10^3 (1.8-7.8); NEUTROPHILS % (AUTO) 64 % (42-75); PLATELET COUNT 361 10^3/uL (130-400); RED CELL DISTRIBUTION WIDTH 13.5 % (10.0-14.5); WHITE BLOOD COUNT 8.6 10^3/uL (4.3-11.0)
[2019-12-31] MEDS ORDERED: ceFAZolin 2 GM IV Premixed 50 ML IV ONE (09:00)
[2019-12-31] MEDS ORDERED: CATHETER FLUSH 10 ML SYR IV PRN (09:00)
--- NOTE | 2019-12-31 09:17 | Progress Note-Pre Operative ---
Pre-Operative Progress Note H&P Reviewed The H&P was reviewed, patient examined and no changes noted. Time Seen by Provider: 09:14 Date H&P Reviewed: Dec 31, 2019 Time H&P Reviewed: 09:15 Pre-Operative Diagnosis: cholelithiasis/cholecystitis LOREN RAY DO Dec 31, 2019 09:17
[2019-12-31] MEDS ORDERED: IOPAMIDOL 61% 30 ML (ISOVUE 300) VIAL ONE (09:23)
[2019-12-31] MEDS ORDERED: BUP/EPI 0.5% 1:200,000 (SENSORCAINE) 30 ML VIAL ONE (09:23)
[2019-12-31] MEDS ORDERED: SEVOFLURANE (ULTANE) 15 ML INHAL SOLN ONE (09:43)
[2019-12-31] MEDS ORDERED: ONDANSETRON 4 MG/2 ML (SDV) Z0FRAN ONE (09:43)
[2019-12-31] MEDS ORDERED: ROCURONIUM 10 MG/ML 5 ML SYRINGE IV ONE (09:43)
[2019-12-31] MEDS ORDERED: GLYCOPYRROLATE 0.2 MG/ML (ROBINUL) 2 ML VIAL ONE (09:43)
[2019-12-31] MEDS ORDERED: MIDAZOLAM 2 MG/2 ML (VERSED) VIAL ONE (09:43)
[2019-12-31] MEDS ORDERED: fentaNYL INJECTION 100 MCG/2 ML AMP ONE ×2 (09:43→11:17)
[2019-12-31] MEDS ORDERED: DEXAMETHASONE 10 MG/ML (DECADRON) 1 ML VIAL ONE (09:43)
[2019-12-31] MEDS ORDERED: proPOfol 200 MG/20 ML (DIPRIVAN) VIAL IV ONE (09:43)
[2019-12-31] MEDS ORDERED: NEOSTIGMINE 3 MG/3 ML VIAL ONE (09:43)
[2019-12-31] MEDS ORDERED: LIDOCAINE PF 2% 5 ML (XYLOCAINE) VIAL ONE (09:43)
[2019-12-31] MEDS ORDERED: HYDR-4226 PO (10:59)
--- NOTE | 2019-12-31 10:59 | Progress Note-Post Operative ---
Post-Operative Progess Note Surgeon (s)/Press Operator (s) Surgeon LOREN RAY DO Press Operator: Jose Pre-Operative Diagnosis cholelithiasis/cholecystitis Post-Operative Diagnosis Same Procedure & Operative Findings Date of Procedure 12/31/19 Procedure Performed/Findings PROCEDURE: Laparoscopic cholecystectomy with intraoperative cholangiogram. COMPLICATIONS: None. PROCEDURE: The patient was taken to the operating suite and was prepped and draped in sterile fashion. A surgical pause was performed. Just superior to the umbilicus, a 12 mm incision was made. Dissection was taken down to the fascia, which was then scored and grasped with a Erica and the abdomen was then entered. A 0 Vicryl suture was placed in a pwgxsw-za-qelfa fashion and a De Jesus trocar was placed and secured. Pneumoperitoneum was achieved. A 5mm trochar place in the subxyphoid and 2 in the right upper quadrant. The gallbladder was then grasped and elevated. The cystic duct, and cystic artery were then dissected out. Clip was placed on the distal portion of the cystic duct which was then partially transected. An arrow catheter was inserted into the duct. The cholangiogram was then performed. No filing defects and contrast made its way into the duodenum. Catheter removed. Clips were placed on proximal portion of the cystic duct and then the duct was then transected. Clips were placed along the proximal and distal portion of the cystic artery which was then transected. Hook cautery was used to dissect the gallbladder from the gallbladder fossa achieving hemostasis. The gallbladder was placed in an Endobag and removed through the 12 mm trocar site. The abdomen was then reinspected. Copious amounts of irrigation were used to irrigate the abdomen and there were no signs of active bleeding. Hemostasis had been achieved. The 12 mm fascial defect was then closed with 0 Vicryl suture that had been placed in a chwjhb-tp-mjvex fashion. The abdomen was then desufflated, the trocars were removed. The abdomen was then washed and dried. The skin was then closed using 4-0 Monocryl in a subcuticular fashion. The abdomen was washed and dried and Skin Affix was place over incisions. Patient tolerated the procedure well without any complications and was taken to the recovery room in stable condition. Anesthesia Type GET Estimated Blood Loss Estimated blood loss (mL): scant Specimens/Packing Specimens Removed GB and contents LOREN RAY DO Dec 31, 2019 10:59
--- NOTE | 2019-12-31 11:00 | Discharge Inst-Surgical ---
Discharge Inst-Surgical Depart Medication/Instructions New, Converted or Re-Newed RX: RX Given to Pt/Family Patient Instructions Follow up Appt: Make appointment for 1 week. [phone] Instructions: No lifting greater than 20 pounds. No strenuous activity. May shower in 24 hours, no tub bath or soaking. Use incentive spirometer at home as directed. No Smoking Skin/Wound Care: May remove bandages in am. You need to leave the Dermabond on incision it will fall off on it's own. Symptoms to Report: Appetite Changes, Extremity Discoloration, Numbness/Tingling, Swelling Increased, Bleeding Excessive, Eyesight Changes, Pain Increased, Urine Color Change, Constipation(Persistent), Fever over 101 degree F, Pain/Pressure in chest, Urinating Difficulty, Cough Up/Vomit Blood, Heart Beat Irreg/Pounding, Pain/Pressure in jaw, Cramps in feet or legs, Lightheadedness, Pain/Pressure in shoulder, Diarrhea(Persistent), Memory Changes Suddenly, Questions/Concerns, Weight gain consecutive days, Dizziness/Fainting, Nausea/Vomiting, Shortness of Breath, Weight gain over 2 pounds If questions or concerns contact your physician Or seek help at emergency department. Activity Activity as Tolerated: Yes Activity Instructions: Avoid Stress to Incision Driving Instructions: No Driving/Refer to Diet Discharge Diet: Avoid Fatty Foods, Low Fat/Low Cholesterol Diet After 24 Hours: Clear Liquid if Nauseous If Any Problems/Questions/Issu: Contact Your Physician, Go to Emergency Room Skin/Wound Care Infection Signs and Symptoms: Increased Redness, Foul Odor of Wound, Increased Drainage, Skin Itchy or Has a Rash, Increased Swelling, Temperature Above 101 F Wound Care Comment: heating pad to shoulder or neck tonight for pain Bathing Instructions: Shower Stitches/[place]/Dermabond Dis: Dermabond Ice Pack: Ice On and Off Site (at incisions as needed for pain) LOREN RAY DO Dec 31, 2019 11:00
--- NOTE | 2019-12-31 11:11 | Diagnostic Imaging Report ---
INDICATION: Fluoroscopy during intraoperative cholangiogram. FINDINGS: Fluoroscopy was provided in the OR during intraoperative cholangiogram. A total of 7 seconds of fluoroscopic time was utilized. Images demonstrate contrast being injected via the cystic duct remnant. The intrahepatic and extrahepatic bile ducts are of normal caliber. No filling defects are seen to suggest a retained stone. Contrast flows into the duodenum. IMPRESSION: Fluoroscopy during intraoperative cholangiogram. Dictated by: Dictated on workstation # [id number]
[2019-12-31] MEDS ORDERED: KETOROLAC 30 MG/ML VIAL ONE (11:18)
[2019-12-31] MEDS ORDERED: HYDROmorphone 2 MG/ML VIAL (DILAUDID) IV ONE (11:30)
[2019-12-31] MEDS ORDERED: KETOROLAC 30 MG/ML VIAL IVP ONE (11:30)
[2019-12-31] MEDS ORDERED: fentaNYL INJECTION 100 MCG/2 ML AMP IVP ONE (11:30)
[2019-12-31] MEDS ORDERED: MEPERIDINE (DEMEROL) INJ 50 MG/ML IVP ONE (11:30)
[2019-12-31] MEDS ORDERED: PROMETHAZINE INJ 25 MG/ML (PHENERGAN) AMP IVP ONE (11:30)
[2019-12-31] MEDS: ONDANSETRON 4 MG/2 ML (SDV) Z0FRAN IVP PRN (12:31)
--- NOTE | 2019-12-31 12:43 | Anesthesia-General Post-Op ---
MAC Patient Condition Mental Status/LOC: Same as Preop Cardiovascular: Satisfactory Nausea/Vomiting: Absent Respiratory: Satisfactory Pain: Controlled Complications: Absent Post Op Complications Complications None Follow Up Care/Instructions Patient Instructions None needed. Anesthesiology Discharge Order Discharge Order Patient is doing well, no complaints, stable vital signs, no apparent adverse anesthesia problems. No complications reported per nursing. AIMEE KRAUSE CRNA Dec 31, 2019 12:43
== END 2019-12-31 13:40 | disposition home or self-care (01) ==
LOC: SDC 08:19
PROVIDERS: ATTEND Surgery
DX: K80.10 Calculus of gallbladder with chronic cholecystitis without obstruction (principal); Z11.2 Encounter for screening for other bacterial diseases; K21.9 Gastro-esophageal reflux disease without esophagitis
CPT/HCPCS: 36415; 76000; 84703; 85025; 87081

== ENCOUNTER 2020-01-03 14:17 | Emergency (ER) | payer BC ==
[~2020-01-03] VITALS: Ht 157.4 cm; Wt 81.4 kg
[~2020-01-03 14:17] MED LIST changes: +HYDR-4226 PO
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
--- NOTE | 2020-01-03 14:31 | ED Abdominal Pain ---
General Stated Complaint: POST OP PAIN - GALLBLADDER Source of Information: Patient Exam Limitations: No Limitations History of Present Illness Date Seen by Provider: Jan 03, 2020 Time Seen by Provider: 14:29 Initial Comments ER with reports of severe diffuse abdominal pain. She had a laparoscopic cholecystectomy done 3 days ago here. She had been having what she would consider normal postoperative pain until earlier today when she became nauseous and vomited. After vomiting she took one of her hydrocodone but the pain still difficult to tolerate. The pain is diffuse and not localize any one part of the abdomen. Timing/Duration: 4-6 Hours Severity/Quality: Severe Location: Generalized Abdomen Radiation: No Radiation Activities at Onset: None Associated Symptoms: Nausea/Vomiting Allergies and Home Medications Allergies Coded Allergies: No Known Drug Allergies (Unverified , 12/24/19) Home Medications Hydrocodone/Acetaminophen 1 Each Tablet, 1 TAB PO Q6H Prescribed by: LOREN RAY on 12/31/19 1059 Ondansetron 8 Mg Tab.rapdis, 8 MG PO Q6H PRN for NAUSEA/VOMITING Prescribed by: CIPRIANO PAN on 01/03/20 1549 Vit W-Ca,Fe,FA(<1 mg) 1 Each Tablet, 1 EACH PO DAILY, (Reported) Patient Home Medication List Home Medication List Reviewed: Yes Review of Systems Review of Systems Constitutional: see HPI; No chills, No fever EENTM: No Symptoms Reported Respiratory: No Symptoms Reported Cardiovascular: No Symptoms Reported Gastrointestinal: See HPI, Abdominal Pain; Denies Constipated, Denies Diarrhea; Nausea Genitourinary: No Symptoms Reported Musculoskeletal: no symptoms reported Skin: no symptoms reported Psychiatric/Neurological: No Symptoms Reported Endocrine: No Symptoms Reported Past Hnnhsnt-Ekvvjh-Arkzxd Hx Patient Social History 2nd Hand Smoke Exposure: No Recent Foreign Travel: No Contact w/Someone Who Travel: No Recent Hopitalizations: Yes (11/04/19- SECTION) Immunizations Up To Date Tetanus Booster (TDap): Less than 5yrs Seasonal Allergies Seasonal Allergies: Yes Past Medical History Surgeries: Yes Section Respiratory: No Cardiac: No Neurological: No Female Reproductive Disorders: Denies Sexually Transmitted Disease: No HIV/AIDS: No Genitourinary: No Gastrointestinal: Yes Gastroesophageal Reflux, Gall Bladder Disease Musculoskeletal: No Endocrine: No HEENT: No Loss of Vision: Denies Hearing Impairment: Denies Cancer: No Psychosocial: No Integumentary: Yes Eczema Blood Disorders: No Adverse Reaction/Blood Tranf: No (N/A) Family Medical History Diabetes mellitus Grandparents (Paternal Grandmother) FH: cancer Grandparents (Maternal Grandmother) Hypertension Grandparents (Maternal Grandmother) Physical Exam Vital Signs Vital Signs - First Documented 01/03/20 14:22 Temp 37.1 Pulse 88 Resp 16 B/P (MAP) 126/80 (95) Pulse Ox 97 O2 Delivery Room Air Capillary Refill : Height/Weight/BMI Height: '" Weight: lbs. oz. kg; 32.25 BMI Method: General Appearance: WD/WN, no apparent distress HEENT: PERRL/EOMI, normal ENT inspection Respiratory: no respiratory distress, no accessory muscle use Cardiovascular: regular rate, rhythm, no murmur Gastrointestinal: normal bowel sounds, soft, tenderness (diffusely area incisions are clean dry and intact) Extremities: normal range of motion, non-tender Neurologic/Psychiatric: alert, normal mood/affect, oriented x 3 Skin: normal color, warm/dry Progress/Results/Core Measures Results/Orders Lab Results Laboratory Tests Test 01/03/20 14:37 Range/Units White Blood Count 15.2 H 4.3-11.0 10^3/uL Red Blood Count 4.87 4.35-5.85 10^6/uL Hemoglobin 13.9 11.5-16.0 G/DL Hematocrit 41 35-52 % Mean Corpuscular Volume 84 80-99 FL Mean Corpuscular Hemoglobin 29 25-34 PG Mean Corpuscular Hemoglobin Concent 34 32-36 G/DL Red Cell Distribution Width 13.2 10.0-14.5 % Platelet Count 373 130-400 10^3/uL Mean Platelet Volume 10.4 7.4-10.4 FL Neutrophils (%) (Auto) 82 H 42-75 % Lymphocytes (%) (Auto) 11 L 12-44 % Monocytes (%) (Auto) 6 0-12 % Eosinophils (%) (Auto) 1 0-10 % Basophils (%) (Auto) 0 0-10 % Neutrophils # (Auto) 12.5 H 1.8-7.8 X 10^3 Lymphocytes # (Auto) 1.7 1.0-4.0 X 10^3 Monocytes # (Auto) 0.9 0.0-1.0 X 10^3 Eosinophils # (Auto) 0.1 0.0-0.3 10^3/uL Basophils # (Auto) 0.0 0.0-0.1 10^3/uL Neutrophils % (Manual) 79 % Lymphocytes % (Manual) 9 % Monocytes % (Manual) 4 % Eosinophils % (Manual) 1 % Basophils % (Manual) 0 % Band Neutrophils 3 % Reactive Lymphocytes 4 % Blood Morphology Comment NORMAL Sodium Level 140 135-145 MMOL/L Potassium Level 4.1 3.6-5.0 MMOL/L Chloride Level 103 98-107 MMOL/L Carbon Dioxide Level 25 21-32 MMOL/L Anion Gap 12 5-14 MMOL/L Blood Urea Nitrogen 12 7-18 MG/DL Creatinine 0.89 0.60-1.30 MG/DL Estimat Glomerular Filtration Rate > 60 BUN/Creatinine Ratio 13 Glucose Level 107 H 70-105 MG/DL Calcium Level 9.5 8.5-10.1 MG/DL Corrected Calcium 8.5-10.1 MG/DL Total Bilirubin 0.6 0.1-1.0 MG/DL Aspartate Amino Transf (AST/SGOT) 58 H 5-34 U/L Alanine Aminotransferase (ALT/SGPT) 120 H 0-55 U/L Alkaline Phosphatase 99 40-136 U/L Total Protein 7.7 6.4-8.2 GM/DL Albumin 4.7 H 3.2-4.5 GM/DL Lipase 11 8-78 U/L My Orders Orders - CIPRIANO PAN BREASTFEEDING EDUCATOR Cbc With Automated Diff (01/03/20 14:20) Ed Iv/Invasive Line Start (01/03/20 14:20) Ct Abdomen/Pelvis W (01/03/20 14:20) Ns Iv 1000 Ml (Sodium Chloride 0.9%) (01/03/20 14:45) Ondansetron Injection (Zofran Injectio (01/03/20 14:45) Ketorolac Injection (Toradol Injection) (01/03/20 14:45) Fentanyl Injection (Sublimaze Injection (01/03/20 14:45) Manual Differential (01/03/20 14:37) Comprehensive Metabolic Panel (01/03/20 14:37) Lipase (01/03/20 14:37) Iohexol Injection (Omnipaque 350 Mg/Ml 1 (01/03/20 15:15) Received Contrast (Hold Metformin- Contr (01/03/20 15:15) Ns (Ivpb) (Sodium Chloride 0.9% Ivpb Bag (01/03/20 15:15) Medications Given in ED Current Medications Medications Dose Ordered Sig/Mirta Route Start Time Stop Time Status Last Admin Dose Admin Fentanyl Citrate 50 mcg ONCE ONCE IVP 01/03/20 14:45 01/03/20 14:46 DC 01/03/20 14:57 50 MCG Iohexol 100 ml ONCE ONCE IV 01/03/20 15:15 01/03/20 15:16 DC 01/03/20 15:21 100 ML Ketorolac Tromethamine 15 mg ONCE ONCE IVP 01/03/20 14:45 01/03/20 14:46 DC 01/03/20 14:56 15 MG Ondansetron HCl 8 mg ONCE ONCE IVP 01/03/20 14:45 01/03/20 14:46 DC 01/03/20 14:54 8 MG Sodium Chloride 100 ml ONCE ONCE IV 01/03/20 15:15 01/03/20 15:16 DC 01/03/20 15:21 80 ML Vital Signs/I&O 01/03/20 14:22 Temp 37.1 Pulse 88 Resp 16 B/P (MAP) 126/80 (95) Pulse Ox 97 O2 Delivery Room Air Diagnostic Imaging Diagonstic Imaging: CT Comments NAME: MUKESH ELY MED REC#: [id number] PT STATUS: REG ER : 2000 PHYSICIAN: CIPRIANO PAN APRN ADMIT DATE: 01/03/20/ER Draft Date of Exam:01/03/20 CT ABDOMEN/PELVIS W EXAMINATION: CT abdomen and pelvis with intravenous contrast. TECHNIQUE: Multiple contiguous axial images were obtained through the abdomen and pelvis after the uneventful administration of intravenous contrast. All CT scans use one or more of the following dose optimizing techniques: automated exposure control, MA and/or KvP adjustment based on patient size and exam type or iterative reconstruction. HISTORY: Abdominal pain. Recent cholecystectomy. COMPARISON: None available. FINDINGS: The heart is unremarkable. The included lung bases are clear. The liver, spleen, pancreas, adrenal glands and kidneys have a normal appearance. The gallbladder is surgically absent. There is no pathologically enlarged mesenteric or retroperitoneal adenopathy. The bowel loops are nondilated. A moderate amount of stool seen in the colon. A small amount of free fluid is seen in the abdomen and pelvis. Tiny punctate focus of free air is noted. No acute osseous abnormalities. The urinary bladder is moderately distended. There is no free air, loculated collection or adenopathy in the pelvis. IMPRESSION: 1. Moderate amount of stool in the colon, which can be seen with constipation. No evidence of bowel obstruction. 2. Small amount of free fluid in the pelvis, likely reactive related to the recent cholecystectomy. No evidence of loculated abscess is seen at this time. Recommend close follow-up and if symptoms persist repeat imaging to evaluate for developing abscess. Tiny punctate focus of free air is seen in the midline of the abdomen. 3. Moderately distended urinary bladder. Dictated on workstation # [id number] Dict: 01/03/20 1532 Trans: 01/03/20 1537 [facility] [id number] Interpreted by: WILBER OLSON DO Electronically signed by: Departure Communication (Admissions) 5100-she feels much better at this time, we will discharge to home. Discussed with Dr. Ray, he agrees with plan of care. Impression Primary Impression: Nausea and vomiting Additional Impression: Postoperative pain Disposition: 01 HOME, SELF-CARE Condition: Improved Departure-Patient Inst. Decision time for Depature: 15:48 Referrals: ÁNGEL SHEARER DO (PCP/Family) Primary Care Physician Patient Instructions: Postoperative Pain (DC) Add. Discharge Instructions: 1. Return to ER for any concerns 2. Follow-up with your doctor next week 3. Scripts Ondansetron (Ondansetron Odt) 8 Mg Tab.rapdis 8 MG PO Q6H PRN for NAUSEA/VOMITING, #10 TAB Prov: CIPRIANO PAN BREASTFEEDING EDUCATOR 01/03/20 CIPRIANO PAN BREASTFEEDING EDUCATOR Jan 03, 2020 14:31
[2020-01-03 14:45] LABS: BASOPHILS % (AUTO) 0 % (0-10); EOSINOPHILS # (AUTO) 0.1 10^3/uL (0.0-0.3); EOSINOPHILS % (AUTO) 1 % (0-10); HEMATOCRIT 41 % (35-52); HEMOGLOBIN 13.9 G/DL (11.5-16.0); LYMPHOCYTES # (AUTO) 1.7 X 10^3 (1.0-4.0); LYMPHOCYTES % (AUTO) 11 % (12-44); MEAN CORPUSCULAR HEMOGLOBIN 29 PG (25-34); MEAN CORPUSCULAR HGB CONC 34 G/DL (32-36); MEAN CORPUSCULAR VOLUME 84 FL (80-99); MEAN PLATELET VOLUME 10.4 FL (7.4-10.4); MONOCYTES # (AUTO) 0.9 X 10^3 (0.0-1.0); MONOCYTES % (AUTO) 6 % (0-12); NEUTROPHILS # (AUTO) 12.5 X 10^3 (1.8-7.8); NEUTROPHILS % (AUTO) 82 % (42-75); PLATELET COUNT 373 10^3/uL (130-400); RED CELL DISTRIBUTION WIDTH 13.2 % (10.0-14.5); WHITE BLOOD COUNT 15.2 10^3/uL (4.3-11.0)
[2020-01-03] MEDS ORDERED: ONDANSETRON 4 MG/2 ML (SDV) Z0FRAN IVP ONE (14:45)
[2020-01-03] MEDS ORDERED: KETOROLAC 30 MG/ML VIAL IVP ONE (14:45)
[2020-01-03] MEDS ORDERED: fentaNYL INJECTION 100 MCG/2 ML AMP IVP ONE (14:45)
[2020-01-03] MEDS ORDERED: NS IV 1000 ML 1,000 ML IV SCH (14:45)
[2020-01-03 15:07] LABS: BAND NEUTROPHILS 3 %; BASOPHILS % (MANUAL) 0 %; EOSINOPHILS % (MANUAL) 1 %; LYMPHOCYTES % (MANUAL) 9 %; MONOCYTES % (MANUAL) 4 %; NEUTROPHILS % (MANUAL) 79 %
[2020-01-03 15:08] LABS: RBC MORPH NORMAL; REACTIVE LYMPHOCYTES 4 %
[2020-01-03 15:15] LABS: ALBUMIN 4.7 GM/DL (3.2-4.5); CHLORIDE 103 MMOL/L (98-107); POTASSIUM 4.1 MMOL/L (3.6-5.0); SODIUM 140 MMOL/L (135-145)
[2020-01-03] MEDS ORDERED: HOLD METFORMIN - RECEIVED CONTRAST 20 ML VIAL IV SCH (15:15)
[2020-01-03] MEDS ORDERED: NS 100 ML (IVPB) BAG IV ONE (15:15)
[2020-01-03] MEDS ORDERED: IOHEXOL 350 MG/ML 100 ML (OMNIPAQUE 350) VIAL IV ONE (15:15)
[2020-01-03 15:17] LABS: CALCIUM 9.5 MG/DL (8.5-10.1)
[2020-01-03 15:18] LABS: GLUCOSE 107 MG/DL (70-105); TOTAL PROTEIN 7.7 GM/DL (6.4-8.2)
[2020-01-03 15:19] LABS: CARBON DIOXIDE 25 MMOL/L (21-32)
[2020-01-03 15:20] LABS: BILIRUBIN,TOTAL 0.6 MG/DL (0.1-1.0)
[2020-01-03 15:21] LABS: ALKALINE PHOSPHATASE 99 U/L (40-136); CREATININE SERUM 0.89 MG/DL (0.60-1.30); GFR ESTIMATED > 60
[2020-01-03 15:23] LABS: BUN/CREATININE RATIO 13
[2020-01-03 15:24] LABS: ALANINE AMINOTRANSFERASE 120 U/L (0-55)
[2020-01-03 15:25] LABS: LIPASE 11 U/L (8-78)
--- NOTE | 2020-01-03 15:37 | Diagnostic Imaging Report ---
EXAMINATION: CT abdomen and pelvis with intravenous contrast. TECHNIQUE: Multiple contiguous axial images were obtained through the abdomen and pelvis after the uneventful administration of intravenous contrast. All CT scans use one or more of the following dose optimizing techniques: automated exposure control, MA and/or KvP adjustment based on patient size and exam type or iterative reconstruction. HISTORY: Abdominal pain. Recent cholecystectomy. COMPARISON: None available. FINDINGS: The heart is unremarkable. The included lung bases are clear. The liver, spleen, pancreas, adrenal glands and kidneys have a normal appearance. The gallbladder is surgically absent. There is no pathologically enlarged mesenteric or retroperitoneal adenopathy. The bowel loops are nondilated. A moderate amount of stool seen in the colon. A small amount of free fluid is seen in the abdomen and pelvis. Tiny punctate focus of free air is noted. No acute osseous abnormalities. The urinary bladder is moderately distended. There is no free air, loculated collection or adenopathy in the pelvis. IMPRESSION: 1. Moderate amount of stool in the colon, which can be seen with constipation. No evidence of bowel obstruction. 2. Small amount of free fluid in the pelvis, likely reactive related to the recent cholecystectomy. No evidence of loculated abscess is seen at this time. Recommend close follow-up and if symptoms persist repeat imaging to evaluate for developing abscess. Tiny punctate focus of free air is seen in the midline of the abdomen. 3. Moderately distended urinary bladder. Dictated by: Dictated on workstation # [id number]
[2020-01-03] MEDS ORDERED: ONDA8TAB13 PO (15:49)
[2020-01-03 16:00] VITALS: BP 135/80
== END 2020-01-03 16:00 | disposition home or self-care (01) ==
LOC: EDUNIT# 14:17 → ER 14:19
DX: G89.18 Other acute postprocedural pain (principal); R10.84 Generalized abdominal pain; R11.2 Nausea with vomiting, unspecified; Z82.49 Family history of ischemic heart disease and other diseases of the circulatory system
CPT/HCPCS: 36415; 74177; 80053; 83690; 85007; 85027

== ENCOUNTER 2020-01-04 11:26 | Emergency (ER) | payer BC ==
[~2020-01-04] VITALS: Ht 157 cm; Wt 79.3 kg
[~2020-01-04 11:26] MED LIST changes: +ONDA8TAB13 PO
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
--- NOTE | 2020-01-04 11:52 | NUR ---
NOTIFIED DANIELA FLANNERY RN PT ST UNABLE TO CATCH HER BREATH
[2020-01-04] MEDS ORDERED: ONDANSETRON 4 MG/2 ML (SDV) Z0FRAN IVP ONE (12:15)
[2020-01-04] MEDS ORDERED: KETOROLAC 30 MG/ML VIAL IVP ONE (12:15)
[2020-01-04] MEDS ORDERED: fentaNYL INJECTION 100 MCG/2 ML AMP IVP ONE (12:15)
[2020-01-04] MEDS ORDERED: LACTATED RINGERS 1,000 ML IV ONE ×2 (12:49→12:52)
[2020-01-04 12:50] LABS: ALBUMIN 4.5 GM/DL (3.2-4.5)
[2020-01-04 12:51] LABS: CHLORIDE 103 MMOL/L (98-107); POTASSIUM 3.9 MMOL/L (3.6-5.0); SODIUM 139 MMOL/L (135-145)
[2020-01-04 12:52] LABS: CALCIUM 9.2 MG/DL (8.5-10.1)
[2020-01-04 12:53] LABS: GLUCOSE 116 MG/DL (70-105); TOTAL PROTEIN 7.7 GM/DL (6.4-8.2)
[2020-01-04 12:54] LABS: CARBON DIOXIDE 24 MMOL/L (21-32)
[2020-01-04 12:56] LABS: ALKALINE PHOSPHATASE 99 U/L (40-136)
[2020-01-04 12:57] LABS: CREATININE SERUM 0.96 MG/DL (0.60-1.30); GFR ESTIMATED > 60
[2020-01-04 12:58] LABS: BUN/CREATININE RATIO 11
[2020-01-04 12:59] LABS: ALANINE AMINOTRANSFERASE 102 U/L (0-55)
[2020-01-04 13:00] LABS: LIPASE 10 U/L (8-78)
[2020-01-04 13:03] LABS: BASOPHILS % (AUTO) 0 % (0-10); EOSINOPHILS # (AUTO) 0.2 10^3/uL (0.0-0.3); EOSINOPHILS % (AUTO) 1 % (0-10); HEMATOCRIT 40 % (35-52); HEMOGLOBIN 13.2 G/DL (11.5-16.0); LYMPHOCYTES # (AUTO) 1.3 X 10^3 (1.0-4.0); LYMPHOCYTES % (AUTO) 10 % (12-44); MEAN CORPUSCULAR HEMOGLOBIN 28 PG (25-34); MEAN CORPUSCULAR HGB CONC 33 G/DL (32-36); MEAN CORPUSCULAR VOLUME 85 FL (80-99); MEAN PLATELET VOLUME 10.8 FL (7.4-10.4); MONOCYTES % (AUTO) 7 % (0-12); NEUTROPHILS # (AUTO) 11.1 X 10^3 (1.8-7.8); NEUTROPHILS % (AUTO) 82 % (42-75); PLATELET COUNT 356 10^3/uL (130-400); RED CELL DISTRIBUTION WIDTH 13.6 % (10.0-14.5); WHITE BLOOD COUNT 13.7 10^3/uL (4.3-11.0)
[2020-01-04 13:35] LABS: BILIRUBIN,URINE 1+ (NEGATIVE); CLARITY,URINE SL CLOUDY; COLOR,URINE DARK YELLOW; GLUCOSE, URINE (UA) NEGATIVE (NEGATIVE); KETONES,URINE NEGATIVE (NEGATIVE); LEUKOCYTE ESTERASE ,URINE 1+ (NEGATIVE); NITRITE,URINE NEGATIVE (NEGATIVE); PH,URINE 8.5 (5-9); PROTEIN,URINE 1+ (NEGATIVE)
--- NOTE | 2020-01-04 13:36 | ED GI ---
General Chief Complaint: Abdominal/GI Problems Stated Complaint: POST OP/SEVERE ABD PAIN Nursing Triage Note: PATIENT AMBULATORY TO ER COVID UNIT WITH COMPLAINT OF DIFFUSE ABDOMINAL PAIN THAT BEGAN YESTERDAY AFTER HAVING HER GALLBLADDER REMOVED ON SUNDAY BY DR. RAY. PATIENT WAS SEEN IN ER HERE YESTERDAY WITH LABS AND CT SCAN DONE. PATIENT WAS DISCHARGED TO HOME WITH ZOFRAN. PATIENT STATES SHE DID TAKE THE ZOFRAN BUT VOMITED SHORTLY AFTER TAKING IT. SHE IS COMPLAINING OF UNCONTROLLED ABDOMINAL PAIN. SHE STATES SHE DID TAKE A PAIN PILL AT 11;30 TODAY BUT VOMITED SHORTLY AFTER TAKING IT. PATIENT STATES SHE ABDOMINAL PAIN IS MAKING HER SHORT OF BREATH. Sepsis Screen: No Definite Risk Source of Information: Patient Exam Limitations: No Limitations History of Present Illness Date Seen by Provider: Jan 04, 2020 Time Seen by Provider: 12:40 Initial Comments Here with report of right-sided abdominal pain status post gallbladder surgery. Surgery was several days ago. She was seen yesterday and had evaluation including CT scan and labs which did not show anything significant other than constipation. She admits now that she took a laxative yesterday because she has not had bowel movement since Sunday and has repeated a laxative today because she is still have bowel movement. Pain seems to be after the laxatives. She has taken her pain pills as directed and she is almost out of those. Denies fever or chills. She states the pain takes her breath away. She has not had any exposure to COVID cases or anybody else sick. Has had some nausea and vomiting with the pain and cramping. Timing/Duration: 1-2 Days, Getting Worse Severity/Quality: Moderate, Aching, Burning Location: RUQ, RLQ Radiation: LUQ, LLQ Activities at Onset: None Modifying Factors: Improves With Analgesics, Improves With Vomiting Associated Symptoms: No Back Pain, No Chest Pain, No Fever/Chills; Nausea/Vomiting; No Weakness Allergies and Home Medications Allergies Coded Allergies: No Known Drug Allergies (Unverified , 12/24/19) Home Medications Hydrocodone/Acetaminophen 1 Each Tablet, 1 TAB PO Q6H Prescribed by: LOREN RAY on 12/31/19 1059 Ondansetron 8 Mg Tab.rapdis, 8 MG PO Q6H PRN for NAUSEA/VOMITING Prescribed by: CIPRIANO PAN on 01/03/20 1549 Vit W-Ca,Fe,FA(<1 mg) 1 Each Tablet, 1 EACH PO DAILY, (Reported) Patient Home Medication List Home Medication List Reviewed: Yes Review of Systems Review of Systems Constitutional: see HPI; No chills, No fever EENTM: No Symptoms Reported Respiratory: See HPI; Denies Cough, Denies Wheezing Cardiovascular: No Symptoms Reported Gastrointestinal: See HPI, Abdominal Pain, Constipated, Nausea, Vomiting Genitourinary: No Symptoms Reported Musculoskeletal: muscle pain; No muscle weakness Skin: no symptoms reported Psychiatric/Neurological: Anxiety; Denies Weakness Past Hmdpiqt-Giebuo-Bzxpmb Hx Past Med/Social Hx: Reviewed Nursing Past Med/Soc Hx Patient Social History Alcohol Use: Denies Use Recreational Drug Use: No Smoking Status: Never a Smoker 2nd Hand Smoke Exposure: No Recent Foreign Travel: No Contact w/Someone Who Travel: No Recent Infectious Disease Expo: No Recent Hopitalizations: Yes (11/04/19- SECTION, 12/31/19- gallbladder ) Physical Abuse: No Sexual Abuse: No Mistreated: No Fear: No Immunizations Up To Date Tetanus Booster (TDap): Less than 5yrs Seasonal Allergies Seasonal Allergies: Yes Past Medical History Surgeries: Yes Section, Gallbladder Respiratory: No Cardiac: No Neurological: No Female Reproductive Disorders: Denies Sexually Transmitted Disease: No HIV/AIDS: No Genitourinary: No Gastrointestinal: Yes Gastroesophageal Reflux, Gall Bladder Disease Musculoskeletal: No Endocrine: No HEENT: No Loss of Vision: Denies Hearing Impairment: Denies Cancer: No Psychosocial: No Integumentary: Yes Eczema Blood Disorders: No Adverse Reaction/Blood Tranf: No (N/A) Family Medical History Reviewed Nursing Family Hx Diabetes mellitus Grandparents (Paternal Grandmother) FH: cancer Grandparents (Maternal Grandmother) Hypertension Grandparents (Maternal Grandmother) Physical Exam Vital Signs Vital Signs - First Documented 01/04/20 12:00 Temp 37.1 Pulse 81 Resp 17 B/P (MAP) 139/91 (107) Pulse Ox 100 O2 Delivery Room Air Capillary Refill : Less Than 3 Seconds Height/Weight/BMI Height: '" Weight: lbs. oz. kg; 32.00 BMI Method: General Appearance: WD/WN, no apparent distress HEENT: PERRL/EOMI, pharynx normal Neck: full range of motion, supple Respiratory: lungs clear, normal breath sounds Cardiovascular: regular rate, rhythm, no murmur Gastrointestinal: soft; No guarding, No rebound; tenderness (right upper quadrant mainly) Extremities: non-tender, normal inspection Neurologic/Psychiatric: alert, oriented x 3 Skin: normal color, warm/dry, other (postoperative wounds are clean, dry and intact.) Progress/Results/Core Measures Results/Orders Lab Results Laboratory Tests Test 01/04/20 12:19 01/04/20 13:28 Range/Units White Blood Count 13.7 H 4.3-11.0 10^3/uL Red Blood Count 4.69 4.35-5.85 10^6/uL Hemoglobin 13.2 11.5-16.0 G/DL Hematocrit 40 35-52 % Mean Corpuscular Volume 85 80-99 FL Mean Corpuscular Hemoglobin 28 25-34 PG Mean Corpuscular Hemoglobin Concent 33 32-36 G/DL Red Cell Distribution Width 13.6 10.0-14.5 % Platelet Count 356 130-400 10^3/uL Mean Platelet Volume 10.8 H 7.4-10.4 FL Neutrophils (%) (Auto) 82 H 42-75 % Lymphocytes (%) (Auto) 10 L 12-44 % Monocytes (%) (Auto) 7 0-12 % Eosinophils (%) (Auto) 1 0-10 % Basophils (%) (Auto) 0 0-10 % Neutrophils # (Auto) 11.1 H 1.8-7.8 X 10^3 Lymphocytes # (Auto) 1.3 1.0-4.0 X 10^3 Monocytes # (Auto) 1.0 0.0-1.0 X 10^3 Eosinophils # (Auto) 0.2 0.0-0.3 10^3/uL Basophils # (Auto) 0.0 0.0-0.1 10^3/uL Sodium Level 139 135-145 MMOL/L Potassium Level 3.9 3.6-5.0 MMOL/L Chloride Level 103 98-107 MMOL/L Carbon Dioxide Level 24 21-32 MMOL/L Anion Gap 12 5-14 MMOL/L Blood Urea Nitrogen 11 7-18 MG/DL Creatinine 0.96 0.60-1.30 MG/DL Estimat Glomerular Filtration Rate > 60 BUN/Creatinine Ratio 11 Glucose Level 116 H 70-105 MG/DL Calcium Level 9.2 8.5-10.1 MG/DL Corrected Calcium 8.8 8.5-10.1 MG/DL Total Bilirubin 1.0 0.1-1.0 MG/DL Aspartate Amino Transf (AST/SGOT) 53 H 5-34 U/L Alanine Aminotransferase (ALT/SGPT) 102 H 0-55 U/L Alkaline Phosphatase 99 40-136 U/L Total Protein 7.7 6.4-8.2 GM/DL Albumin 4.5 3.2-4.5 GM/DL Lipase 10 8-78 U/L Urine Color DARK YELLOW Urine Clarity SL CLOUDY Urine pH 8.5 5-9 Urine Specific [place] 1.020 1.016-1.022 Urine Protein 1+ H NEGATIVE Urine Glucose (UA) NEGATIVE NEGATIVE Urine Ketones NEGATIVE NEGATIVE Urine Nitrite NEGATIVE NEGATIVE Urine Bilirubin 1+ H NEGATIVE Urine Urobilinogen 0.2 < = 1.0 MG/DL Urine Leukocyte Esterase 1+ H NEGATIVE Urine RBC (Auto) NEGATIVE NEGATIVE Urine RBC NONE /HPF Urine WBC 5-10 H /HPF Urine Squamous Epithelial Cells 5-10 /HPF Urine Crystals NONE /LPF Urine Bacteria MODERATE H /HPF Urine Casts NONE /LPF Urine Mucus SMALL H /LPF Urine Culture Indicated YES My Orders Orders - JENNIFER LINDA MD Lactated Ringers (Lr 1000 Ml Iv Solution (01/04/20 12:52) Cbc With Automated Diff (01/04/20 12:53) Bisacodyl Suppository (Dulcolax Supposit (01/04/20 14:00) Medications Given in ED Current Medications Medications Dose Ordered Sig/Mirta Route Start Time Stop Time Status Last Admin Dose Admin Bisacodyl 20 mg ONCE ONCE NM 01/04/20 14:00 01/04/20 14:01 DC 01/04/20 13:53 20 MG Fentanyl Citrate 50 mcg ONCE ONCE IVP 01/04/20 12:15 01/04/20 12:16 DC 01/04/20 12:33 50 MCG Ketorolac Tromethamine 15 mg ONCE ONCE IVP 01/04/20 12:15 01/04/20 12:16 DC 01/04/20 12:31 15 MG Lactated Ringer's 1,000 ml @ 0 mls/hr Q0M ONCE IV 01/04/20 12:52 01/04/20 12:53 DC 01/04/20 13:02 1,000 MLS/HR Ondansetron HCl 8 mg ONCE ONCE IVP 01/04/20 12:15 01/04/20 12:16 DC 01/04/20 12:30 8 MG Vital Signs/I&O 01/04/20 12:00 Temp 37.1 Pulse 81 Resp 17 B/P (MAP) 139/91 (107) Pulse Ox 100 O2 Delivery Room Air Blood Pressure Mean: 107 Progress Progress Note : Progress Note Seen and evaluated. IV, labs, UA, fentanyl 50 g IV and Toradol 30 mg IV ordered. LR 1 L bolus. Monitor patient. I reviewed the CT scan and it does show significant constipation which I believe is part of the problem. Patient admits to taking laxatives yesterday and today and having worse pain afterwards and I think the pain is related to cramping from pushing against hard stool. I did discuss this with the patient. We will do Dulcolax suppositories 20 mg per rectum. This was placed by the nurse there and she did note hard stool within the rectal vault. Monitor patient. 1448: Patient has not gone to the bathroom yet but is feeling the urge now and she is having some cramping. I did discuss with her at length regarding narcotics and its adverse effect on the bowel with respect to constipation. She will try to avoid that. She will initiate MiraLAX at home and will consider doing fleets enema at home which I think will help greatly. Labs are improved today from yesterday. This was discussed with the patient. There is question of possible urinary tract infection but it appears to be more contamination. We will await culture results. Discharged home with return precautions. Patient verbalize understanding instructions and agreement with plan. I will send a copy of the chart to Dr. Ray. Departure Impression Primary Impression: Abdominal pain, diffuse Additional Impressions: Constipation Qualified Codes: K59.00 - Constipation, unspecified Postoperative pain Disposition: HOME, SELF-CARE Condition: Stable Departure-Patient Inst. Decision time for Depature: 14:50 Referrals: ÁNGEL SHEARER DO (PCP/Family) Primary Care Physician Patient Instructions: Acute Abdomen (Belly Pain), Adult (DC), Postoperative Pain (DC), Constipation, Adult (DC) Add. Discharge Instructions: All discharge instructions reviewed with patient and/or family. Voiced understanding. Drink plenty of fluids. You may take MiraLAX or the generic one capful twice daily for the next 3 days and then one capful daily thereafter to keep stools soft. You may increase or decrease the dose to keep stools in normal range. You may use the Fleet's enema either the mineral oil (recommended) or traditional fleets enema per package directions. Follow-up with your Dr. in a few days for recheck. Return for worse pain, fever, vomiting, weakness, breathing problems or other concerns as needed. You may take Tylenol/acetaminophen 1000 mg every 6-8 hours as needed for pain if you're not taking the prescribed pain medicine. Do not take both at the same time as they both have acetaminophen in them. You may take ibuprofen 600 mg every 8 hours as needed for pain as well. Copy Copies To 1: LOREN RAY TIMOTHY D MD Jan 04, 2020 13:36
[2020-01-04 13:53] LABS: BACTERIA,URINE MODERATE /HPF
[2020-01-04] MEDS ORDERED: BISACODYL 10 MG SUPP (DULCOLAX) PR ONE (14:00)
[2020-01-04 15:18] VITALS: BP 127/78
== END 2020-01-04 15:19 | disposition home or self-care (01) ==
LOC: EDUNIT# 11:26 → ER 11:27
DX: K59.00 Constipation, unspecified (principal); G89.18 Other acute postprocedural pain; Z82.49 Family history of ischemic heart disease and other diseases of the circulatory system
CPT/HCPCS: 36415; 80053; 81000; 83690; 85025; 87088

== ENCOUNTER → 2020-01-09 | Outpatient (CLI) | payer BC ==
[2020-01-09 08:00] LABS: HEMOGLOBIN 12.7 G/DL (11.5-16.0); MEAN PLATELET VOLUME 10.2 FL (7.4-10.4); RED CELL DISTRIBUTION WIDTH 13.1 % (10.0-14.5); WHITE BLOOD COUNT 9.3 10^3/uL (4.3-11.0)
[2020-01-09 08:17] LABS: ALBUMIN 4.4 GM/DL (3.2-4.5); CHLORIDE 104 MMOL/L (98-107); POTASSIUM 3.8 MMOL/L (3.6-5.0); SODIUM 140 MMOL/L (135-145)
[2020-01-09 08:18] LABS: CALCIUM 9.3 MG/DL (8.5-10.1)
[2020-01-09 08:19] LABS: GLUCOSE 78 MG/DL (70-105); TOTAL PROTEIN 7.6 GM/DL (6.4-8.2)
[2020-01-09 08:20] LABS: CARBON DIOXIDE 24 MMOL/L (21-32)
[2020-01-09 08:21] LABS: BILIRUBIN,TOTAL 0.5 MG/DL (0.1-1.0)
--- NOTE | 2020-01-09 08:22 | Diagnostic Imaging Report ---
PROCEDURE: US Hepatic (Liver). TECHNIQUE: Multiple real-time grayscale images were obtained over the right upper quadrant in various projections. INDICATION: Abdominal pain, status post cholecystectomy one week ago. Liver is slightly enlarged to 18.3 cm. No discrete liver mass is detected. Portal vein is patent and shows normal direction of flow. Gallbladder is surgically absent. There is a small fluid collection in the gallbladder fossa measuring 3.4 x 2.0 x 3.4 cm. There is some questionable minimal intrahepatic biliary ductal dilatation. Extrahepatic bile duct measures 7 mm in diameter. Pancreas unremarkable. Aorta is nonaneurysmal. IVC is patent. Right kidney is without evidence of calculi or hydronephrosis. There is no ascites. IMPRESSION: Status post cholecystectomy. There is a gallbladder fossa fluid collection, perhaps a resolving hematoma/seroma. There is minimal intrahepatic ductal dilatation as well. If there is concern for bile leak, nuclear medicine HIDA scan may be useful for further evaluation. No other significant abnormality is detected. Dictated by: Dictated on workstation # [id number]
[2020-01-09 08:23] LABS: ALKALINE PHOSPHATASE 99 U/L (40-136); CREATININE SERUM 0.89 MG/DL (0.60-1.30); GFR ESTIMATED > 60
[2020-01-09 08:24] LABS: BUN/CREATININE RATIO 12
[2020-01-09 08:26] LABS: ALANINE AMINOTRANSFERASE 67 U/L (0-55)
== END ==
LOC: RAD 06:44
PROVIDERS: ATTEND Nurse Practitioner Family
DX: R10.9 Unspecified abdominal pain (principal); Z98.890 Other specified postprocedural states
CPT/HCPCS: 36415; 76705; 80053; 85027

== ENCOUNTER → 2021-09-02 | Outpatient (CLI) | payer BC, MEDICAID ==
[~2021-09-02] MED LIST changes: +ACHD5005 PO; -CETI10TA21 PO; +CETI10TA49 PO; -DCS100C PO; +DOCU-239 PO; -HYDR-83 PO
--- NOTE | 2021-09-02 12:26 | Diagnostic Imaging Report ---
INDICATION: anatomy survey. TECHNIQUE: Multiple real-time grayscale images were obtained over the gravid uterus. COMPARISON: None FINDINGS: Single live intrauterine is in cephalic presentation. The cervix measures 5.3 cm in length. No previa is present. Anterior position of the placenta. anatomy survey is performed and the following structures are visualized and normal: Cerebral ventricles, cerebellum/cisterna magna, stomach, urinary bladder, umbilical cord insertion, spine, kidneys, four-chamber heart, left ventricular outflow tract. Biometrical measurements are as follows: Biparietal 4.66 cm, age 20 weeks 1 days. Head circumference 17.47 cm, age 20 weeks 0 days. Abdominal circumference 14.33 cm, age 19 weeks 5 days. Femur length 3.20 cm, age 20 weeks 0 days. Sonographic estimate age: 20 weeks 0 days. Sonographic estimated date of delivery: 01/20/2022. Estimated Weight: 316 gm (+/- 46 gm). LMP percentile: 36%. heart rate: 160 beats per minute. number: 1 of 1. IMPRESSION: Single live intrauterine with normal anatomy survey. Dictated by: Dictated on workstation # [id number]
== END ==
LOC: RAD 10:00
PROVIDERS: ATTEND Obstetrics & Gynecology
DX: Z36.89 Encounter for other specified antenatal screening (principal); Z3A.20 20 weeks gestation of pregnancy
CPT/HCPCS: 76805

== ENCOUNTER 2022-01-19 06:00 | Inpatient (IN) | payer MEDICAID ==
[~2022-01-19] VITALS: Ht 157.5 cm; Wt 83.8 kg
[2022-01-19] VITALS (70 sets, daily range): BP systolic 73–152; BP diastolic 40–89
--- OUTSIDE RECORDS SUMMARY | 2022-01-19 06:07 | XMS REPORT | Clinical Summary ---
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 If you d o not see the information that you expected, contact Release of Information in [facility] [employer] [facility] Information Management department at [phone] for further assistan ce in locating additional records.[facility] Allergies Not on File Medications Not on file Active Problems Not on file Social History Date Tobacco Use Types Packs/Day Years Used Never Assessed Sex Assigned at Date Recorded Not on file Last Filed Vital Signs Not on file Plan of Treatment Health Maintenance Due Date Last Done Comments CHLAMYDIA SCREENING 18-24 1998 YEARS COVID-19 VACCINE (#1) 1998 HPV VACCINES (1 - 2-dose 2009 series) HIV SCREENING 2013 DTAP/TDAP VACCINES ( - 01/25/2016 Tdap) HEPATITIS C SCREENING 01/25/2016 PHYSICAL (COMPREHENSIVE) 01/25/2016 EXAM CERVICAL CANCER SCREENING 2019 INFLUENZA VACCINE 05/23/2022 Results Not on filefrom Last 3 Months Insurance Type Payer Benefit Subscriber ID Effective Phone Address Plan / Dates Group PPO [place] [id number] 2018-P [phone] [id number] [facility] [address] [place] [address] [employer] MEDICAID [employer] [id number] 2019-P [phone] [id number] [place], [place] [address], [place] [address] Advance Directives 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
[2022-01-19] MEDS ORDERED: LIDOCAINE/EPI 2% 1:200,00 (XYLOCAINE) 10 ML VIAL INJ PRN (06:30)
[2022-01-19] MEDS ORDERED: OXYTOCIN PRE-MIX DRIP 500 ML IV SCH (06:30)
[2022-01-19 06:42] LABS: BASOPHILS # (AUTO) 0.1 10^3/uL (0.0-0.1); BASOPHILS % (AUTO) 1 % (0-10); EOSINOPHILS # (AUTO) 0.2 10^3/uL (0.0-0.3); EOSINOPHILS % (AUTO) 2 % (0-10); HEMATOCRIT 39 % (35-52); HEMOGLOBIN 13.2 g/dL (11.5-16.0); LYMPHOCYTES # (AUTO) 2.3 10^3/uL (1.0-4.0); LYMPHOCYTES % (AUTO) 20 % (12-44); MEAN CORPUSCULAR HEMOGLOBIN 30 pg (25-34); MEAN CORPUSCULAR HGB CONC 34 g/dL (32-36); MEAN CORPUSCULAR VOLUME 87 fL (80-99); MEAN PLATELET VOLUME 10.8 fL (9.0-12.2); MONOCYTES # (AUTO) 0.8 10^3/uL (0.0-1.0); MONOCYTES % (AUTO) 7 % (0-12); NEUTROPHILS # (AUTO) 8.2 10^3/uL (1.8-7.8); NEUTROPHILS % (AUTO) 70 % (42-75); PLATELET COUNT 286 10^3/uL (130-400); WHITE BLOOD COUNT 11.6 10^3/uL (4.3-11.0)
[2022-01-19] MEDS: D5 LR IV SOLUTION 1,000 ML IV SCH ×3 (06:51→22:06)
[2022-01-19] MEDS ORDERED: fentaNYL 2 mcg/ml BUPIVA 0.125 100 ML ONE (07:54)
[2022-01-19] MEDS ORDERED: BUPIVACAINE 0.25% 30 ML (SENSORCAINE) VIAL ONE (07:56)
[2022-01-19] MEDS ORDERED: fentaNYL INJ 100 MCG/2 ML AMP ONE (07:56)
--- NOTE | 2022-01-19 08:06 | History & Physical-OB ---
OB - Chief Complaint & HPI Date/Time Date of Admission: Date of Admission: Jan 19, 2022 at 06:01 Date seen by a Provider: Jan 19, 2022 Time Seen by a Provider: 07:45 Chief Complaint/History OB-Reason for Admission/Chief: Induction of Labor Hx : 2 Hx Para: 2 Expected Date of Delivery: Jan 20, 2022 Gestational Age in Weeks: 39 Gestational Age in Days: 6 Other reason for admission: IOL for TOLAC Admission Nurse Assessment Rev: Yes Allergies and Home Medications Allergies Coded Allergies: No Known Drug Allergies (Unverified , 12/24/19) Patient Home Medication List Home Medication List Reviewed: Yes Vit W-Ca,Fe,FA(<1 mg) ( Formula) 1 Each Tablet, 1 EACH PO DAILY, (Reported) Entered as Reported by: JAKY OSPINA on 10/28/19 0913 Last Action: Reviewed Discontinued Medications Hydrocodone/Acetaminophen (Hydrocodone/Acetaminophen 5 MG/325 MG TAB) 1 Each Tablet, 1 TAB PO Q6H Discontinued Reason: No Longer Taking Prescribed by: LOREN RAY on 12/31/19 1059 Last Action: Discontinued Ondansetron (Ondansetron Odt) 8 Mg Tab.rapdis, 8 MG PO Q6H PRN for NAUSEA/VOMITING Discontinued Reason: No Longer Taking Prescribed by: CIPRIANO PAN on 01/03/20 1549 Last Action: Discontinued OB - History Hx of Present Care: Yes Ultrasounds: Normal mid trimester US Obstetrical Complications: None Medical Complications: None Delivery History Adverse Rxn to Tranfusion: No (N/A) Patient Past Medical History n/a Social History/Family History 2nd Hand Smoke Exposure: No Immunizations Tetanus Booster (TDap): Less than 5yrs OB - Admission Exam Physical Exam Vitals: Vital Signs 01/19/22 01/19/22 06:35 06:57 Temp 36.5 Pulse 91 Resp 18 B/P (MAP) 133/85 (101) Pulse Ox 99 O2 Delivery Room Air HEENT: NCAT Heart: Rhythm Normal Lungs: Clear Abdomen: Gravid Extremities: Normal Reflexes: Normal Cervical Dilatation: 2cm Effacement: 75% Station: -1 Membranes: Intact Heart Rate: 130's Accelerations: Accelerations Present Decelerations: No Decelerations Short Term Variability: Present It Investment/Portfolio Manager Variability: Average (6-25) Contractions on Admission: 6-10 Minutes Apart Intensity: Mild Chauhan Scoring Tool (Modified) Dilation (cm): 1-2cm (1) Effacement (%): 51-79% (2) Descent/Station: -1,0 (2) Cervix Consistency: Soft (2) Cervix Position: Anterior (2) Subtract 1 point for: Nulliparity (-1) Chauhan Score: 8 Labs Laboratory Tests Test 01/19/22 06:30 Range/Units White Blood Count 11.6 H 4.3-11.0 10^3/uL Red Blood Count 4.46 3.80-5.11 10^6/uL Hemoglobin 13.2 11.5-16.0 g/dL Hematocrit 39 35-52 % Mean Corpuscular Volume 87 80-99 fL Mean Corpuscular Hemoglobin 30 25-34 pg Mean Corpuscular Hemoglobin Concent 34 32-36 g/dL Red Cell Distribution Width 13.4 10.0-14.5 % Platelet Count 286 130-400 10^3/uL Mean Platelet Volume 10.8 9.0-12.2 fL Immature Granulocyte % (Auto) 0 % Neutrophils (%) (Auto) 70 42-75 % Lymphocytes (%) (Auto) 20 12-44 % Monocytes (%) (Auto) 7 0-12 % Eosinophils (%) (Auto) 2 0-10 % Basophils (%) (Auto) 1 0-10 % Neutrophils # (Auto) 8.2 H 1.8-7.8 10^3/uL Lymphocytes # (Auto) 2.3 1.0-4.0 10^3/uL Monocytes # (Auto) 0.8 0.0-1.0 10^3/uL Eosinophils # (Auto) 0.2 0.0-0.3 10^3/uL Basophils # (Auto) 0.1 0.0-0.1 10^3/uL Immature Granulocyte # (Auto) 0.1 0.0-0.1 10^3/uL OB - Assessment/Plan/Diagnosis Assessment Assessment: induction of labor Admission Dx 21 yo @ 39.6 weeks IOL TOLAC GBS neg Admission Status: Inpatient Order (span 2 midnights) Reason for Inpatient Admission: IOL at 39 weeks Plan Plan: Induction Induction Method: ANGELA CHURCH DO Jan 19, 2022 08:06
[2022-01-19] MEDS ORDERED: NALOXONE 0.4 MG/ML 1 ML (NARCAN) VIAL IV PRN (08:30)
[2022-01-19] MEDS ORDERED: LACTATED RINGERS 1,000 ML IV ONE (08:30)
[2022-01-19] MEDS ORDERED: CATHETER FLUSH 10 ML SYR IV PRN (08:30)
[2022-01-19] MEDS: CATHETER FLUSH 10 ML SYR IV SCH (19:41)
[2022-01-19] MEDS: fentaNYL 2 mcg/ml BUPIVA 0.125 100 ML IV SCH (20:43)
[2022-01-20] VITALS (25 sets, daily range): BP systolic 95–157; BP diastolic 56–80
[2022-01-20] MEDS: fentaNYL 2 mcg/ml BUPIVA 0.125 100 ML IV SCH (03:20)
[2022-01-20] MEDS ORDERED: METHYLERGONOVINE 0.2 MG/ML (METHERGINE) AMP ONE (04:05)
[2022-01-20] MEDS ORDERED: LIDOCAINE/EPI 2% 1:200,00 (XYLOCAINE) 10 ML VIAL ONE (05:08)
[2022-01-20] MEDS ORDERED: BENZOCAINE/MENTHOL (DERMOPLAST) 56 ML CAN TP PRN (05:30)
[2022-01-20] MEDS ORDERED: HYDROcodone/APAP 5 MG/325 MG (LORTAB) TAB PO PRN (05:30)
[2022-01-20] MEDS ORDERED: MEASLES,MUMPS,RUBELLA 1 EA INJ SQ ONE (05:30)
[2022-01-20] MEDS ORDERED: DIBUCAINE 1% OINTMENT 30 GM TUBE TOP PRN (05:30)
[2022-01-20] MEDS ORDERED: NALOXONE 0.4 MG/ML 1 ML (NARCAN) VIAL IV PRN (05:30)
[2022-01-20] MEDS ORDERED: TETANUS,DIPTH,PERTUSS P/F (BOOSTRIX) 0.5 ML VIAL IM ONE (05:30)
[2022-01-20] MEDS ORDERED: WITCH HAZEL(TUCKS) 40 EA JAR TOP PRN (05:30)
--- NOTE | 2022-01-20 05:33 | OB Labor & Delivery Record ---
L&D History Date of Service Date of Service: Jan 20, 2022 History Expected Date of Delivery: Jan 20, 2022 Gestational Age in Weeks: 39 Hx : 2 Hx Para: 2 Complications Events: Routine care Operative Indications (Cesarea: N/A-Vaginal Delivery Intrapartal Events: None L&D Stage1 Stage One Onset of Labor - Date: Jan 20, 2022 Monitors and Tracing Monitor Mode: External Heart Rate: 130 Monitor Accelerations: Uniform Monitor Decelerations: Variable Penitentiary Variability: Average (6-10) Short Term Variability: Present Presentation: Vertex Vital Signs VS - Last 72 Hours, by Label 01/19/22 01/19/22 01/19/22 01/19/22 06:35 06:57 07:41 08:05 Temp 36.5 36.5 36.5 Pulse 91 91 98 Resp 18 18 18 B/P (MAP) 133/85 (101) 136/84 (101) Pulse Ox 99 99 100 O2 Delivery Room Air Room Air Room Air 01/19/22 01/19/22 01/19/22 01/19/22 08:08 08:11 08:14 08:17 Pulse 99 107 98 107 Resp 18 18 18 18 B/P (MAP) 127/86 (100) 121/80 (94) 123/82 (96) 126/78 (94) Pulse Ox 100 100 99 99 O2 Delivery Room Air Room Air Room Air Room Air 01/19/22 01/19/22 01/19/22 01/19/22 08:22 08:28 08:33 08:51 Pulse 105 107 93 105 Resp 18 18 18 18 B/P (MAP) 126/59 (81) 128/72 (90) 128/68 (88) 125/81 (96) Pulse Ox 99 100 100 100 O2 Delivery Room Air Room Air Room Air Room Air 01/19/22 01/19/22 01/19/22 01/19/22 09:07 09:21 09:37 09:40 Temp 36.5 Pulse 85 92 86 Resp 18 18 18 B/P (MAP) 114/68 (83) 119/74 (89) 119/73 (88) Pulse Ox 99 100 99 O2 Delivery Room Air Room Air Room Air 01/19/22 01/19/22 01/19/22 01/19/22 10:07 10:22 10:38 10:52 Pulse 94 90 96 92 Resp 18 18 18 18 B/P (MAP) 128/71 (90) 129/76 (93) 117/78 (91) 152/76 (101) Pulse Ox 99 99 99 99 O2 Delivery Room Air Room Air Room Air Room Air 01/19/22 01/19/22 01/19/22 01/19/22 11:08 11:23 11:40 11:43 Temp 36.7 Pulse 103 97 90 91 Resp 18 18 18 18 B/P (MAP) 125/84 (98) 123/89 (100) 121/79 (93) 116/72 (87) Pulse Ox 100 100 97 98 O2 Delivery Room Air Room Air Room Air Room Air 01/19/22 01/19/22 01/19/22 01/19/22 11:47 11:50 11:53 11:56 Pulse 92 83 96 90 Resp 18 18 18 18 B/P (MAP) 122/76 (91) 116/79 (91) 118/61 (80) 121/71 (88) Pulse Ox 98 98 90 99 O2 Delivery Room Air Room Air Room Air Room Air 01/19/22 01/19/22 01/19/22 01/19/22 11:58 12:02 12:24 12:40 Pulse 89 88 89 86 Resp 18 18 18 18 B/P (MAP) 125/75 (92) 127/78 (94) 119/78 (92) 133/83 (100) Pulse Ox 99 99 99 100 O2 Delivery Room Air Room Air Room Air Room Air 01/19/22 01/19/22 01/19/22 01/19/22 13:10 13:25 13:41 13:55 Temp 36.4 Pulse 71 80 91 98 Resp 18 18 18 18 B/P (MAP) 110/53 (72) 111/59 (76) 73/40 (51) 118/56 (76) Pulse Ox 100 100 100 100 O2 Delivery Room Air Room Air Room Air Room Air 01/19/22 01/19/22 01/19/22 01/19/22 14:03 14:11 14:55 15:11 Temp 36.4 Pulse 83 88 90 Resp 18 18 18 B/P (MAP) 120/73 (89) 115/65 (82) 123/73 (90) Pulse Ox 100 91 99 O2 Delivery Room Air Room Air Room Air 01/19/22 01/19/22 01/19/22 01/19/22 15:25 15:54 16:10 16:25 Pulse 95 77 77 93 Resp 18 18 18 18 B/P (MAP) 122/71 (88) 107/59 (75) 104/67 (79) 119/79 (92) Pulse Ox 98 100 100 100 O2 Delivery Room Air Room Air Room Air Room Air 01/19/22 01/19/22 01/19/22 01/19/22 16:33 16:40 16:55 17:10 Temp 36.9 Pulse 90 92 92 Resp 18 18 18 B/P (MAP) 141/86 (104) 127/71 (89) 132/82 (99) Pulse Ox 100 100 99 O2 Delivery Room Air Room Air Room Air 01/19/22 01/19/22 01/19/22 01/19/22 17:25 17:40 17:56 18:26 Pulse 100 100 109 83 Resp 18 18 18 18 B/P (MAP) 124/78 (93) 124/75 (91) 103/57 (72) 99/55 (70) Pulse Ox 99 97 99 100 O2 Delivery Room Air Room Air Room Air Room Air 01/19/22 01/19/22 01/19/22 01/19/22 18:38 18:54 19:10 19:25 Temp 36.5 Pulse 101 95 99 92 Resp 18 18 18 18 B/P (MAP) 126/89 (101) 126/81 (96) 113/67 (82) 123/68 (86) Pulse Ox 99 100 99 100 O2 Delivery Room Air Room Air Room Air Room Air 01/19/22 01/19/22 01/19/22 01/19/22 19:40 19:55 20:10 20:25 Pulse 90 88 93 90 Resp 18 18 18 18 B/P (MAP) 122/76 (91) 131/87 (102) 118/77 (91) 126/73 (90) Pulse Ox 100 100 98 99 O2 Delivery Room Air Room Air Room Air Room Air 01/19/22 01/19/22 01/19/22 01/19/22 20:40 20:55 21:10 21:25 Temp 36.5 Pulse 92 83 88 89 Resp 18 18 18 18 B/P (MAP) 134/79 (97) 124/75 (91) 120/67 (84) 118/73 (88) Pulse Ox 99 98 98 98 O2 Delivery Room Air Room Air Room Air Room Air 01/19/22 01/19/22 01/19/22 01/19/22 21:40 21:55 22:10 22:25 Temp 36.3 Pulse 95 84 82 77 Resp 18 18 18 18 B/P (MAP) 114/57 (76) 103/55 (71) 100/58 (72) 98/53 (68) Pulse Ox 91 98 98 98 O2 Delivery Room Air Room Air Room Air Room Air 01/19/22 01/19/22 01/19/22 22:40 22:55 23:10 Temp 36.7 36.5 Pulse 77 73 96 Resp 18 18 18 B/P (MAP) 107/63 (78) 97/55 (69) 122/87 (99) Pulse Ox 98 99 98 O2 Delivery Room Air Room Air Room Air Rupture of Membranes Spontaneous Ruture of Membrane: No Amniotic Membrane Rupture Time: 748 Amniotic Membrane Fluid Desc.: Meconium Stained Vaginal Bleeding Description: Normal Show Induction/Anesthesia Epidural Cath Placement - Time: 811 Progress/Notes Patient admitted yesterday for IOL. AROM and Pitocin augmentation used throughout the day and evening. Epidural placed after admission. She did reach a max dose of 20 mu/min pitocin infusion. L&D Stage2 Stage Two Stage II Date: Jan 20, 2022 Monitors and Tracing Monitor Mode: External Heart Rate: 130 Monitor Accelerations: Uniform Monitor Decelerations: None Traffic Technician Variability: Average (6-10) Short Term Variability: Present Position: Right Occiput Anterior Presentation: Vertex Cord Descript/Complications Cord Vessel Description: 3 Vessels Delivery Type Delivery Method: Spontaneous Vaginal Anterior Shoulder: Left Episiotomy/Perineal Laceration Laceraction(s)/Extensions: Yes Episiotomy Description: Vaginal Extension/lac, 1st degree Degree (describe repair) vaginal laceration repaired using 3-0 rapide in usual fashion. Condition of Delivery 1 minute Comment: 6 5 minute Comment: 8 Notes Live female infant weight 6lbs 8 oz Condition of Condition of : Living Exam: No Observed Abnormalities Resuscitation Resuscitation: N/A - Spontaneous Resp L&D Stage3 Stage Three Stage III Date: Jan 20, 2022 Pictocin Pitocin Administration mu/min: 20 Pitocin ml/hr: 20 Pitocin Administration Comment: 30 mu wide open after delivery of placenta Placenta Delivery Placenta Delivery: Spontaneous Delivery Summary Summary Estimated blood loss (mL): 400 Attending at delivery: Angela Rivera DO Condition of Delivery Examined: Cervix Examined, Uterus Explored Post Hemorrhage: No Condition of Mother stable Condition of (s) stable ANGELA RIVERA DO Jan 20, 2022 05:33
--- NOTE | 2022-01-20 05:34 | Discharge Inst-Women's Service ---
Discharge Inst-Women's Serv Depart Medication/Instructions New, Converted or Re-Newed RX: Transmitted to Pharmacy Final Diagnosis PPD 1 Problems Reviewed?: Yes Consults/Follow Up Additional Follow Up: Yes Orders/Referrals Dr. Rivera in 6 weeks Activity Activity: Activity as Tolerated Driving Instructions: No Driving for 1 Week NO SMOKING: NO SMOKING Nothing Inside Vagina: No Douching, No [place], No Tampons Diet Discharge Diet: No Restrictions Symptoms to Report to : Bleeding Excessive, Pain Increased, Fever Over 101 Degrees F, Vaginal Bleeding Increase, Questions/Concerns For Any Problems or Questions: Contact Your Physician ANGELA RIVERA DO Jan 20, 2022 05:34
[2022-01-20] MEDS ORDERED: BENZ78AE5 TP (05:35)
[2022-01-20] MEDS ORDERED: IBUP-844 PO (05:35)
[2022-01-20] MEDS ORDERED: FERR325T24 PO (05:35)
[2022-01-20] MEDS ORDERED: DIBU30OI TOP (05:35)
[2022-01-20] MEDS ORDERED: DOCU100C37 PO (05:35)
[2022-01-20] MEDS ORDERED: ACHD5005 PO (05:35)
[2022-01-20] MEDS: OXYTOCIN PRE-MIX DRIP 500 ML IV SCH ×2 (05:36→23:00)
[2022-01-20] MEDS: IBUPROFEN 600 MG (MOTRIN) TAB PO SCH ×3 (07:03→18:37)
[2022-01-20] MEDS: CATHETER FLUSH 10 ML SYR IV SCH ×4 (07:03→15:13)
[2022-01-20] MEDS: DOCUSATE SODIUM 100 MG (COLACE) CAP PO SCH ×2 (09:20→20:12)
[2022-01-20] MEDS: PRENATAL VITAMIN 1 EA TAB PO SCH (09:21)
[2022-01-20] MEDS: FERROUS SULF 325 MG (IRON) TAB PO SCH (09:21)
--- NOTE | 2022-01-20 10:53 | Anesthesia-Regional Post-Op ---
Regional Patient Condition Mental Status: Alert, Oriented x3 Circulation: Same as Pre-Op Headache: Absent Sensation: Full Recovery Motor Block: Absent Post Op Complications Complications None Follow Up Care/Instructions Patient Instructions None needed. Anesthesia/Patient Condition Patient is doing well, ambulating without difficulty, no complaints, stable vital signs, no apparent adverse anesthesia problems. KIKI SHARMA DO Jan 20, 2022 10:53
[2022-01-21] MEDS: IBUPROFEN 600 MG (MOTRIN) TAB PO SCH ×3 (00:02→12:32)
[2022-01-21 02:36] VITALS: BP 122/60
[2022-01-21 06:03] LABS: BASOPHILS # (AUTO) 0.1 10^3/uL (0.0-0.1); BASOPHILS % (AUTO) 0 % (0-10); EOSINOPHILS # (AUTO) 0.2 10^3/uL (0.0-0.3); EOSINOPHILS % (AUTO) 1 % (0-10); HEMATOCRIT 31 % (35-52); HEMOGLOBIN 10.1 g/dL (11.5-16.0); LYMPHOCYTES # (AUTO) 2.3 10^3/uL (1.0-4.0); LYMPHOCYTES % (AUTO) 16 % (12-44); MEAN CORPUSCULAR HEMOGLOBIN 30 pg (25-34); MEAN CORPUSCULAR HGB CONC 33 g/dL (32-36); MEAN CORPUSCULAR VOLUME 91 fL (80-99); MEAN PLATELET VOLUME 10.9 fL (9.0-12.2); MONOCYTES % (AUTO) 7 % (0-12); NEUTROPHILS # (AUTO) 11.2 10^3/uL (1.8-7.8); NEUTROPHILS % (AUTO) 76 % (42-75); PLATELET COUNT 226 10^3/uL (130-400); WHITE BLOOD COUNT 14.8 10^3/uL (4.3-11.0)
[2022-01-21 06:20] VITALS: BP 103/51
[2022-01-21 08:45] VITALS: BP 117/58
[2022-01-21] MEDS: PRENATAL VITAMIN 1 EA TAB PO SCH (08:53)
[2022-01-21] MEDS: FERROUS SULF 325 MG (IRON) TAB PO SCH (08:53)
[2022-01-21] MEDS: DOCUSATE SODIUM 100 MG (COLACE) CAP PO SCH (08:53)
--- NOTE | 2022-01-21 13:21 | Postpartum Progress Note ---
Note Note Day # 1 Subjective: Patient is without complaints. Ambulating, voiding. Tolerating a regular diet without nausea or vomiting. Normal lochia. Pain is well controlled with oral pain medications. She is breast feeding. She denies any CP, SOB, palpitations, DAILEY, vision abnormalities, lightheadedness, dizziness. Objective: Vital Signs 01/21/22 08:45 Temp 36.5 Pulse 91 Resp 18 B/P (MAP) 117/58 (77) Pulse Ox 100 O2 Delivery Room Air Physical Exam: General - Alert and oriented, no apparent distress Respiratory: non-labored respirations, symmetric chest rise Heart: normal rate and peripheral perfusion Abdomen - Soft, appropriately tender to palpation, non-distended, fundus firm at umbilicus Extremities - no edema, negative Wesley's bilaterally Assessment: post- day #1, status post induced spontaneous vaginal delivery. Recovering well, hemodynamically stable. Patient is meeting discharge goals Plan: Routine care. Encourage breast feeding. Encourage ambulation. Ferrous sulfate supplementation. Plan for discharge today Elli Christie MD Vitals - Labs Vital Signs - I&O Vital Signs Date Time Temp Pulse Resp B/P (MAP) Pulse Ox O2 Delivery O2 Flow Rate FiO2 01/21/22 08:45 36.5 91 18 117/58 (77) 100 Room Air 01/21/22 06:20 36.4 79 16 103/51 (68) 98 Room Air 01/21/22 02:36 36.4 78 16 122/60 (80) 98 Room Air 01/20/22 22:30 36.3 89 16 127/69 (88) 99 Room Air 01/20/22 18:38 36.9 102 16 134/80 (98) 98 Room Air I & O 01/21/22 07:00 Intake Total 600 ml Balance 600 ml Labs Laboratory Tests 01/21/22 05:34: White Blood Count 14.8H, Red Blood Count 3.41L, Hemoglobin 10.1#L, Hematocrit 31L, Mean Corpuscular Volume 91, Mean Corpuscular Hemoglobin 30, Mean Corpuscular Hemoglobin Concent 33, Red Cell Distribution Width 13.8, Platelet Count 226, Mean Platelet Volume 10.9, Immature Granulocyte % (Auto) 1, Neutrophils (%) (Auto) 76H, Lymphocytes (%) (Auto) 16, Monocytes (%) (Auto) 7, Eosinophils (%) (Auto) 1, Basophils (%) (Auto) 0, Neutrophils # (Auto) 11.2H, Lymphocytes # (Auto) 2.3, Monocytes # (Auto) 1.0, Eosinophils # (Auto) 0.2, Basophils # (Auto) 0.1, Immature Granulocyte # (Auto) 0.1 ELLI CHRISTIE MD Jan 21, 2022 13:21
--- NOTE | 2022-01-21 13:27 | Short Stay Summary ---
Discharge Summary Hospital Course Was the Problem List Reviewed?: Yes Final Diagnosis: s/p of living infant Hospital Course Date of Admission: Jan 19, 2022 at 06:01 Admission Diagnosis : Family Physician/Provider: Swetha Bella DO Date of Discharge: 01/21/22 Discharge Diagnosis: s/p of living Hospital Course: Patient presented for elective induction of labor/TOLAC at 39w6d gestational age. Her care was with Dr. Marinelli [facility] in [place], [place]. Her was complicated by history of C-sections x1 secondary to malpresentation. On presentation, there were no concerns, FHR was reactive, and her cervix was 2cm dilated For her induction of labor, she received Pitocin, and AROM was performed for labor augmentation. She received an epidural. She made progress to complete cervical dilation, and pushed to deliver a living infant on 01/20/2022. See delivery summary for details. Her course was uncomplicated. On PPD#1 she was doing well. Her hemoglobin level was 10.1 g/dL, and she was asymptomatic. She was meeting goals including, ambulating without difficulty, voiding, passing flatus, and tolerating a normal PO diet without nausea or vomiting. She desired discharge home, and was discharged in stable medical condition with return precautions provided. Elli Christie MD Labs and Pending Lab Test: Laboratory Tests 01/21/22 05:34: White Blood Count 14.8H, Red Blood Count 3.41L, Hemoglobin 10.1#L, Hematocrit 31L, Mean Corpuscular Volume 91, Mean Corpuscular Hemoglobin 30, Mean Corpuscular Hemoglobin Concent 33, Red Cell Distribution Width 13.8, Platelet Co unt 226, Mean Platelet Volume 10.9, Immature Granulocyte % (Auto) 1, Neutrophils (%) (Auto) 76H, Lymphocytes (%) (Auto) 16, Monocytes (%) (Auto) 7, Eosinophils (%) (Auto) 1, Basophils (%) (Auto) 0, Neutrophils # (Auto) 11.2H, Lymphocytes # (Auto) 2.3, Monocytes # (Auto) 1.0, Eosinophils # (Auto) 0.2, Basophils # (Auto) 0.1, Immature Granulocyte # (Auto) 0.1 Home Meds Active Dibucaine 1 % Oint 0 Gm TOP UD PRN Dermoplast Pain Relieving [place] (Benzocaine/Menthol) 20 %-0.5 % Aerosol 56 Ea TP UD PRN Docusate Sodium 100 Mg Capsule 100 Mg PO BID PRN HYDROcodone/APAP 5 MG/325 MG TAB (Acetaminophen/Hydrocodone Bitart) 1 Tab Tab 1 Ea PO Q4H PRN Ibu (Ibuprofen) 600 Mg Tablet 600 Mg PO Q6HR Ferosul (Ferrous Sulfate) 325 Mg (65 Mg Iron) Tablet 325 Mg PO DAILY Reported Formula ( Vit W-Ca,Fe,FA(<1 mg)) 1 Each Tablet 1 Each PO DAILY Assessment/Pt Instructions Return for persistent headaches, chest pain, shortness of breath, vision abnormalities, fevers, chills, intractable nausea/vomiting, or other concerns Discharge Instructions Discharge Diet: No Restrictions Activity as Tolerated: Yes Discharge Physical Examination General Appearance: Alert, Oriented X3, Cooperative, No Acute Distress HEENT: Atraumatic, EOMI Respiratory: Other (non-labored respirations, symmetric chest rise) Cardiovascular: Other (normal rate and peripheral perfusion) Abdominal: Soft, No Tenderness Extremities: No Edema, No Tenderness/Swelling Neuro: Normal Gait, Normal Speech Psych/Mental Status: Mental Status NL, Mood NL Allergies: Coded Allergies: No Known Drug Allergies (Unverified , 12/24/19) Discharge Summary Date of Admission Jan 19, 2022 at 06:01 Date of Discharge Discharge Date: Jan 21, 2022 ELLI CHRISTIE MD Jan 21, 2022 13:27
[2022-01-21 14:15] VITALS: BP 117/58
== END 2022-01-21 14:05 | disposition home or self-care (01) | DRG 807 ==
LOC: LDRP 06:01
PROVIDERS: ADMIT Obstetrics & Gynecology; ATTEND Obstetrics & Gynecology
PROC: 10907ZC Drainage of Amniotic Fluid, Therapeutic from Products of Conception, Via Natural or Artificial Opening (ICD-10-PCS; 2022-01-19)
PROC: 3E033VJ Introduction of Other Hormone into Peripheral Vein, Percutaneous Approach (ICD-10-PCS; 2022-01-19)
PROC: 10E0XZZ Delivery of Products of Conception, External Approach (ICD-10-PCS; principal; 2022-01-20)
PROC: 0HQ9XZZ Repair Perineum Skin, External Approach (ICD-10-PCS; 2022-01-20)
PROC: 0W8NXZZ Division of Female Perineum, External Approach (ICD-10-PCS; 2022-01-20)
DX: O34.211 Maternal care for low transverse scar from previous cesarean delivery (principal); Z37.0 Single live birth; O70.0 First degree perineal laceration during delivery; Z3A.39 39 weeks gestation of pregnancy
CPT/HCPCS: 36415; 85025; 86850; 86900; 86901